=== PATIENT | male | born 1945 | race Caucasian/White ===

== ENCOUNTER → 2018-02-27 15:07 | Outpatient (CLI) | payer MEDICARE, SELFPAY | PROVIDERS: Family Provider Family Medicine; PCP Family Medicine; Referring Provider Nurse Practitioner Adult Health; Visit Provider Nurse Practitioner Adult Health | DX: N40.0 Benign prostatic hyperplasia without lower urinary tract symptoms (principal); Z12.5 Encounter for screening for malignant neoplasm of prostate | CPT/HCPCS: 36415; 84153; G0103 ==

== ENCOUNTER 2018-04-12 08:30 | Outpatient (RCR) | payer MEDICARE, BC, SELFPAY ==
--- NOTE | 2018-03-26 10:05 | HP.PTEVAL ---
Patient's Visit Information SERAFIN RODRIGUEZ is a 73 year old M referred to Physical Therapy by Thai Theodore with a diagnosis of Suspected Lateral Meniscal Tear. Date of Evaluation: 03/26/18 Physical Therapist: Do Augustin - Visit Plan Frequency: 2x /Week Duration: 3 Weeks Plan: Focus on LE and core s/s and US for modality of choice - Subjective Subjective: According to Dr. Theodore thinks he has a meniscal teat- Insidious onset- 6 weeks ago- more in the past couple of weeks. Plays golf regulaarly and that was becoming uncomfortable and was gone for 11 days and tried to walk/play golf and then he called and made a apt. Had an injection in the knee but no images. Injection was wed but has not helped. Worst: 03/07 Agg: after walking and playing golf. Eases: elevating, laying it to the side, ice and aleve. Pain is mostly at night- hard to get comfortable-has been going back and forth between the bed and chair. Pain is located in the left knee on the outside and radiate down the castaneda and into the inside. Warmth to the touch- Describes the pain as dull and achy. has had some jabbinging on the medial side. No N/T. Has had mild buckling feelings but has not buckled. No falls. Very active- works with [employer] 2x a week with [employer]- does core and weight training. TM for 30 minutes, free weights and machine weight. Golf- rides in the cart but does walk some. PMHx: A-fib, chipped bone on the left- boot a couple of years ago. Meds: fleconide, metoprolol, asprin, fonasteride - Objective Posture:[facility] Gait: slightly antalgic- decreased stance on the left LE with decreased toe off. HR/TR: able without UE A but reports discomfort. SLS: 10 sec with increased muscle activation and poor balance. Stairs: asc/desc 8 recip with no HR- push off is decreased on asc left- desc is uncontrolled and reports discomfort. Palpation: tender along lateral joint line and down the fibula. ROM: 0-110 degrees with pain at end range flexion. Strength: Ankle: 5/5, Knee: 4/5 with pain, Hip: 4-/5 throughout Core: fair. McMurrays: postive - Goals Goal 1:: Patient will be I with HEP and progression Goal Time Frame: 4-6 Weeks Goal 2:: Patient will demo 5/5 strength in LE Goal Time Frame: 4-6 Weeks Goal 3:: Patient will report 0/10 pain Goal Time Frame: 4-6 Weeks Goal 4:: Patient will asc/desc 8 stairs recip with no HR and good mechanics Goal Time Frame: 4-6 Weeks - Rehabilitation Potential Physical Therapy Diagnosis: Patient presents with hypomobility- he has decreased ROM, strength and muscular endurance leading to abnormal gait and increased pain with ADL's. Rehabilitation Potential: Fair - Anticipated Interventions Patient/Client Instruction: Educate patient on: Benefits of Fitness Program Therapeutic Exercise to Include: Strength training, Endurance training, Balance training, Agility training, Body mechanics, Postural training, Flexibilty training, Gait and locomotor training, Passive ROM, Active ROM, Dynamic Lumbar Stabilization For the Purpose of:: To improve muscle performance and motor function TENS: Yes Cryotherapy (ice pack, ice massage): Yes Thermo therapy (hot pack): Yes Ultrasound (thermal/non thermal): Yes For the Purpose of:: To decrease pain Thank you for the opportunity to evaluate your patient. For Medicare and Medicare HMO plans, please review the plan of care and approve it. It will need to be FAXED BACK to us at [phone] for Medicare purposes. Please let me know if there are questions or concerns regarding this plan of care. Physician Signature: Date:
--- NOTE | 2018-04-12 08:52 | HP.PTDCSUM ---
HP - PT D/C Summary It has been my pleasure to treat SERAFIN RODRIGUEZ under orders from Thai Theodore, for the diagnosis of Suspected Lateral Meniscal Tear for a total of 6 visit(s). Discharge Date: Please see the following information for a summary of their discharge status. - Subjective Subjective: Patient reports that his knee is pain free- maybe a week ago was the last time he had pain. The knee feels a little bit of weakness not as strong- no going to buckle- has not had any of those episodes. Moved a little faster up 26 stairs with no pain. Sleep: not disturbed. - Overall Improvement % Improvement: 90 - Objective Objective/Function: Posture: good throughout. Gait: no deviation noted. Stairs: asc/desc 8 recip with no HR- good technique. SLS: 30 sec without LOB. HR/TR: WNL no LOB. ROm: 0-125 degrees. Palpation: not tender. Strength: core: fair plus, LE:5/5 throughout - Goals Goal 1:: Patient will be I with HEP and progression Goal Progress: Goal Met Goal 2:: Patient will demo 5/5 strength in LE Goal Progress: Goal Met Goal 3:: Patient will report 0/10 pain Goal Progress: Goal Met Goal 4:: Patient will asc/desc 8 stairs recip with no HR and good mechanics Goal Progress: Goal Met - Plan Plan: Discharge to I HEP- see log - D/C Information If there are questions or concerns regarding this patient's physical therapy, please feel free to call me at [phone]. Thank you for the referral of this patient. Sincerely, Do Augustin
== END 2018-04-12 09:04 | disposition home or self-care (01) ==
LOC: PT 08:30
PROVIDERS: Family Provider Family Medicine; PCP Family Medicine; Referring Provider Family Medicine; Visit Provider Family Medicine
DX: M25.569 Pain in unspecified knee (principal)
CPT/HCPCS: 97110; 97161; 97164

== ENCOUNTER → 2018-05-04 08:00 | Outpatient (CLI) | payer MEDICARE, BC, SELFPAY ==
[2018-05-03 14:08] VITALS: BMI 27.4
[2018-05-04 09:37] LABS: AST(SGOT) 26 U/L (15-37); Alanine Aminotransfer ALT/SGPT 29 U/L (16-61); Albumin, Serum 3.6 g/dL (3.2-5.0); Alkaline Phosphatase 66 U/L (45-117); Bilirubin, Direct 0.11 mg/dL (0.00-0.30); Cholesterol 171 mg/dL (200); Globulin 3.7 g/dL (2.2-4.2); High Density Lipoprotein 69 mg/dL; Protein, Total 7.3 g/dL (6.4-8.2); Triglycerides 114 mg/dL; Very Low Density Lipoprotein 23 mg/dL (5-40)
== END ==
PROVIDERS: Family Provider Family Medicine; PCP Family Medicine; Referring Provider Internal Medicine Cardiovascular Disease; Visit Provider Internal Medicine Cardiovascular Disease
DX: E78.5 Hyperlipidemia, unspecified (principal); I48.0 Paroxysmal atrial fibrillation
CPT/HCPCS: 36415; 80061; 80076

== ENCOUNTER → 2018-05-14 06:27 | Outpatient (CLI) | payer MEDICARE, BC, SELFPAY ==
[2018-05-03 14:08] VITALS: BMI 27.4
--- NOTE | 2018-05-14 12:31 | STRESSREP ---
Stress Test Report Exercise myocardial perfusion stress test. 73-year-old man with a history of paroxysmal atrial fibrillation on flecainide. Medications: Simvastatin, aspirin, flecainide, metoprolol. Stress protocol. Resting EKG demonstrates sinus bradycardia with a rate of 47 bpm. Resting blood pressure 130/88 mmHg. The patient exercised according to regular Trevor protocol for total duration of 9 minutes and 46 seconds. The maximum heart rate attained was 129 bpm which was 87% of maximum predicted heart rate the maximum workload was 11.3 metabolic equivalents. Patient maintained sinus rhythm throughout the recording. At rest there were nonspecific ST-T wave changes noted. At peak exercise upsloping ST changes were noted with normally the criteria for ischemia. No clinical angina was noted the test was terminated due to leg fatigue and shortness of breath. Resting blood pressure is 130/88 with a peak blood pressure 174/60 mmHg. Myocardial perfusion protocol. 11.6 mCi of technetium 99m sestamibi was injected at rest. The patient exercised according to regular Trevor protocol for 9 minutes and 46 seconds. At peak exercise 34.1 mCi of technetium 99m sestamibi was injected stress images were obtained stress and rest images were reconstructed and compared in the short axis vertical long and horizontal long axis. Gated images were also obtained Perfusion SPECT analysis: Review of the stress images demonstrate normal uptake of tracer noted in all areas of the myocardium. The resting images similarly demonstrate normal uptake of tracer noted in all areas of the myocardium. No areas of reversibility are noted suggest ischemia no previous infarct is noted. Gated SPECT analysis: The gated ejection fraction is noted to be 66%. Conclusion: Normal exercise myocardial perfusion stress test at a high workload. Good functional capacity. No angina noted. No arrhythmia noted.
--- OUTSIDE RECORDS SUMMARY | 2018-08-15 16:25 | XMS RPT_ITS ---
:1945 Author Organization OHIP Care Team Providers Name Role Phone Cash Nathan Attending Unavailable Venita, [place] Referring Unavailable Thai Theodore Primary Care Unavailable Venita, [place] Attending Unavailable Venita, [place] Referring Unavailable Venita, [place] Attending Unavailable Ian Theodoreer Referring Unavailable Thai Theodore Primary Care Unavailable Venita, [place] Attending Unavailable Ian Theodoreer Referring Unavailable Thai Theodore Attending Unavailable Thai Theodore Referring Unavailable Thai Theodore Primary Care Unavailable Heide Norman Attending Unavailable Heide Norman Referring Unavailable [facility] Un[facility] Referring Unavailable [facility] [place] Primary Care Unavailable Venita, Cash Attending Unavailable Venita, Cash Referring Unavailable [facility] Unavailable PROBLEMS PROBLEMS DATE TYPE CONDITION / CODE ATTENDING STATUS SOURCE Unknown M25.562 - Pain in left Arben, Active [facility] 8 knee / M25.562(ICD-10) [facility] Repository Unknown I48.0 - Paroxysmal atrial Venita, [place] Active [place] 9 fibrillation / Community I48.0(ICD-10) Hospital Repository Unknown E78.5 - Hyperlipidemia, Venita, Cash Active [facility] 9 unspecified / Community E78.5(ICD-10) Hospital Repository Unknown M25.569 - Pain in Arben, Active [place] 8 unspecified knee / [facility] M25.569(ICD-10) Hospital Repository Unknown E78.00 - Pure Venita, Cash Active [place] 7 hypercholesterolemia, Community unspecified / Hospital E78.00(ICD-10) Repository Unknown E78.0 - Pure Venita, Cash Active [facility] 7 hypercholesterolemia / Community E78.0(ICD-10) Hospital Repository PROCEDURES PROCEDURES No Procedure Records FoundRESULTS RESULTS KNEE 4 OR MORE Observed: 05/28/2018 Status: F Source: [facility] 10:47 AM REPOSITORY [facility] Imaging Services [address] [place] [id number] Knee 4 or More Views MR#: [id number] Acct: [id number] Name: SERAFIN RODRIGUEZ Rep #: [id number] : 1945 M 73 From: Arya Luna MD PCP: Thai Theodore MD Status: REG CLI Study: Knee 4 or More Views Date of Exam: 05/28/18 Exam# [id number] Ordering Dr: Otis Theodore MD STUDY: X-RAY - LEFT KNEE REASON FOR EXAM: Male, 73 years old. Left knee pain several weeks status post stress test. TECHNIQUE: 4 view(s) of the knee. COMPARISON: None. FINDINGS: No effusion. Periarticular soft tissues unremarkable. Minimal degenerative features of the knee, great minimal osteophytic spurring at the margins of the medial or lateral compartments, mild of the patellofemoral compartment. Osteopenia. RAD/Knee 4 or More Views IMPRESSION: Minimal DJD. No effusion. No evidence of acute injury. Electronically Signed: Arya Luna MD at 15:11 EST Tel , Service support , CC: Thai Theodore MD Bar Staff: Signed STRESS REPORT Observed: 05/14/2018 Status: F Source: [facility] 12:34 PM REPOSITORY [facility] Cardiovascular Services [address] [place] [address] MR#: [id number] Acct: [id number] Name: SERAFIN RODRIGUEZ Rep #: [id number] : 1945 73 From: Cash Nathan MD Primary Care: Thai Theodore MD Status: REG CLI Ordering Dr: Sex: M C Stress Test Report Exercise myocardial perfusion stress test. 73-year-old man with a history of paroxysmal atrial fibrillation on flecainide. Medications: Simvastatin, aspirin, flecainide, metoprolol. Stress protocol. Resting EKG demonstrates sinus bradycardia with a rate of 47 bpm. Resting blood pressure 130/88 mmHg. The patient exercised according to regular Trevor protocol for total duration of 9 minutes and 46 seconds. The maximum heart rate attained was 129 bpm which was 87% of maximum predicted heart rate the maximum workload was 11.3 metabolic equivalents. Patient maintained sinus rhythm throughout the recording. At rest there were nonspecific ST-T wave changes noted. At peak exercise upsloping ST changes were noted with normally the criteria for ischemia. No clinical angina was noted the test was terminated due to leg fatigue and shortness of breath. Resting blood pressure is 130/88 with a peak blood pressure 174/60 mmHg. Myocardial perfusion protocol. 11.6 mCi of technetium 99m sestamibi was injected at rest. The patient exercised according to regular Trevor protocol for 9 minutes and 46 seconds. At peak exercise 34.1 mCi of technetium 99m sestamibi was injected stress images were obtained stress and rest images were reconstructed and compared in the short axis vertical long and horizontal long axis. Gated images were also obtained Perfusion SPECT analysis: Review of the stress images demonstrate normal uptake of tracer noted in all areas of the myocardium. The resting images similarly demonstrate normal uptake of tracer noted in all areas of the myocardium. No areas of reversibility are noted suggest ischemia no previous infarct is noted. Gated SPECT analysis: The gated ejection fraction is noted to be 66%. Conclusion: Normal exercise myocardial perfusion stress test at a high workload. Good functional capacity. No angina noted. No arrhythmia noted. 05/14/18 1234 <Electronically signed by Cash Nathan MD> Date Cash Nathan MD CC: Thai Theodore MD; Cash Nathan MD Date Dictated: 05/14/18 1231 Date Transcribed: 05/14/18 1231 Bar Staff: CO Signed LIVER PROFILE Collected: 05/04/2018 Status: F Source: [facility] 8:01 AM REPOSITORY TYPE CODE TESTS RESULT OUT OF RANGE REFERENCE UNITS LAB L501.1500 6.4-8.2 g/dL Normal T PROT 7.3 LAB L501.1800 3.2-5.0 g/dL Normal ALB 3.6 LAB L501.1950 2.2-4.2 g/dL Normal GLOB 3.7 LAB L501.4100 15-37 U/L Normal AST 26 LAB L501.4305 45-117 U/L Normal ALK P 66 LAB L501.4405 16-61 U/L Normal ALT 29 LAB L501.4600 0.20-1.00 mg/dL Normal T BILI 0.60 LAB L501.4700 0.00-0.30 mg/dL Normal D BILI 0.11 Performed By: #### L500.3400, L500.4100 #### [facility] [address] [place], [address] LIPID PROFILE Collected: 05/04/2018 Status: F Source: [facility] 8:01 AM REPOSITORY TYPE CODE TESTS RESULT OUT OF RANGE REFERENCE UNITS LAB L501.4900 200 mg/dL Normal CHOL 171 Result Comment: <200 mg/dL Desirable 200-240 mg/dL Borderline >240 mg/dL High Risk LAB L501.5000 mg/dL Normal TRIG 114 Result Comment: The drugs N-Acetylcysteine and Metamizole may falsely depress this assay. Serum Triglycerides Reference Interval Normal <150 mg/dL Borderline high 150 - 199 mg/dL High 200 - 499 mg/dL Very High > or = 500 mg/dL LAB L501.6400 mg/dL Normal HDL 69 Result Comment: The drugs N-Acetylcysteine and Metamizole may falsely depress this assay. Reference Range HDL <40 mg/dL Low HDL Cholesterol HDL >or= 60 mg/dL High HDL Cholesterol LAB L501.6500 0-130 mg/dL Normal LDL 79 LAB L501.6600 5-40 mg/dL Normal VLDL 23 Performed By: #### L500.3400, L500.4100 #### [facility] [address] [place], [address] CARDIOLOGY VISIT Observed: 05/03/2018 Status: F Source: [facility] REPORT 2:38 PM REPOSITORY [facility] [address] [place] [address] OFFICE VISIT Date of Service: 05/03/18 MR#: [id number] Acct: [id number] Name: SERAFIN RODRIGUEZ Rep #: [id number] : 1945 Provider: Cash Nathan MD Age/Sex: 73/M Location: [facility] [place] Status: Signed [facility] Chief Complaint: Follow up visit Details: SERAFIN RODRIGUEZ is a 73 M who presents to the office today for a follow-up cardiovascular visit. He is a gentleman with a history of paroxysmal atrial fibrillation mild hyperlipidemia who returns for follow-up visit he has been doing quite well since his last visit denies any chest pain or shortness breath paroxysmal nocturnal dyspnea or pedal edema he has not had any neck, jaw discomfort suggest angina no palpitations. He remains on his current dose of Toprol and flecainide which is tolerating quite well. His physical exam today demonstrates clear lung cage regular rate and rhythm and no pedal edema. His electric cardiogram today demonstrates sinus rhythm with a rate of 48 bpm and no acute changes. Intake Vital Signs05/03/18 Height 5 ft 11 in 05/03/18 Weight: 197 lb 05/03/18 Body Mass Index (BMI) 27.4 05/03/18 Blood Pressure 118/64 05/03/18 Blood Pressure Location Lt brachial Intake Visit Reasons: 1 Y FU (we r/s from -) Bonbon Cream Warmer Required: No Accompanied by: NONE Is patient in pain?: No Allergies No Known Allergies Allergy (Verified 05/03/18 14:09) Medications Aspirin E.C. [Ecotrin] 81 mg PO DAILY@0800 12/03/14 [History Confirmed 05/23/17] Flecainide [Tambocor] 100 mg PO BID 12/03/14 [History Confirmed 05/23/17] finasteride 5 mg tablet 5 mg PO QDAY 05/23/17 [History Confirmed 05/23/17] simvastatin 10 mg tablet 10 mg PO QHS #90 tab 06/13/17 [Rx] metoprolol succinate ER 25 mg tablet,extended release 24 hr 12.5 mg PO DAILY #45 tab 04/26/18 [Rx] diazepam 2 mg tablet 2 mg PO DAILY tab 05/03/18 [History Confirmed 05/03/18] [facility] Medical History Atrial arrhythmia (Chronic) Ventricular ectopy (Chronic) Paroxysmal atrial fibrillation (Chronic) HLD (hyperlipidemia) (Chronic) Paroxysmal atrial tachycardia (Chronic) Vertigo (Resolved 03/2013) Surgical History History of left heart catheterization (LHC) (Chronic 06/15/11) Family History Father CAD (coronary artery disease) Myocardial infarction, Onset Age: 62 Brother AIDS Social History Smoking Status: Never smoker alcohol intake: current alcohol intake frequency: a few times a week Alcohol type: beer, hard liquor substance use type: does not use caffeine: No what type of physical activity do you participate in: weight training, walking frequency: 3-4 times per week duration: 45-60 minutes/day seatbelt use: always do you feel safe at home: Yes ROS Const Const: Negative for fatigue, weakness, night sweats, excessive sweating, frequent falls, headache(s) or daytime sleepiness Eyes Eyes: Negative for loss of peripheral vision, transient loss of vision, blind spots, double vision or blurry vision ENT ENT: Negative for headache(s), dizziness, balance problems, Nosebleed/epistaxis, tongue swelling or lip swelling Cardio Chest Pain: No Palpitations: No Edema: None Muscle aches with walking: None Resp Respiratory: Negative for SOB at rest, SOB orthopnea\SOB lying down, Cough, paroxysmal nocturnal dyspnea or SOB with activity GI GI: Negative nausea, vomiting, heartburn, black,tarry stools or bright, red blood in stools : Negative for hematuria Musc Musc: Negative for balance problems, muscle aches/ myalgia, muscle weakness or joint pain Skin Skin: Negative non-healing lesions, unusual bruising or rash Neuro Neuro: Negative for weakness, frequent falls, headache(s), double vision, dizziness, lightheadedness, orthostatic symptoms, blurry vision or lack of coordination Esteban Hematologic/Lymphatic: Negative for easy bruising or easy bleeding Endo Endo: Negative for fatigue, excessive sweating, cold intolerance, heat intolerance, increased thirst/drinking or hair loss Psych Psych: Negative for anxiety or depression Allergy Allergy/Immunology: Negative for throat swelling, Negative for tongue swelling, Negative for hives, Negative for rash, Negative for lip swelling Cardiology Exam Const Appearance: cooperative, healthy appearing, well developed, well groomed and no acute distress Nutritional Appearance: well nourished and average body habitus Orientation: alert, awake and oriented x3 Head Head: normal to inspection, normocephalic and atraumatic Ears: hearing grossly normal bilaterally and external ears normal Nose: external nose normal, nasal mucous membranes and turbinates normal, nares normal, septum normal, no nasal discharge Face and Sinus: face symmetric Mouth: oral mucosae normal, tongue normal, oropharynx normal and moist mucous membranes Teeth and gingiva: dentition normal Throat: posterior oropharynx normal, tonsils normal and uvula midline Eyes General: appearance normal, both eyes and all related structures Eyelids: eyelids normal Conjunctivae: conjunctivae normal Pupils: PERRL, normal by confrontation and accommodation normal EOM: EOM intact bilaterally Neck Neck: normal visual inspection, trachea midline and no JVD JVD: +5 Carotids: normal carotid upstroke and bounding pulses Chest Chest inspection: normal inspection of the chest, symmetric chest movement and normal respiratory effort Auscultation: Bilateral: Clear to Auscultation Cardio Palpation: normal PMI Rate: regular rate Rhythm: regular rhythm Heart sounds: S1 normal, S2 normal and normal, physiologic split S2; negative rub, gallop or murmur GI GI: normal to inspection, soft, no hepatosplenomegaly and bowel sounds present Neuro General: alert, awake, oriented x3, no focal sensory deficit, gait normal and moves all extremities Skin Skin: no rashes or lesions noted Extremities Pulses: Normal: Right Femoral Pulse, Left Femoral Pulse, Right Dorsalis Pedis Pulse, Left Dorsalis Pedis Pulse, Right Posterior Tibial Pulse, Left Posterior Tibial Pulse, Right Radial Pulse, Left Radial Pulse Lower Extremity Edema: None: Bilateral Musculoskel Musculoskeletal: No joint tenderness Psych Psychological: normal affect Assessment AND Plan 1. Paroxysmal atrial fibrillation I48.0 Plan He does have a history of paroxysmal atrial fibrillation. He is maintaining sinus rhythm quite well and his electrocardiogram reflects the above. My recommendation would be for him to continue the same medications without as making any changes. At this visit I would recommend that we obtain a routine exercise stress test due to his being on flecainide. 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) Coding Level of Care Code Off vis,est,level 3 Diagnoses Paroxysmal atrial fibrillation I48.0 Coding Level of Care Code Off vis,est,level 3 Diagnoses Paroxysmal atrial fibrillation I48.0 05/03/18 1438 <Electronically signed by Cash Nathan MD> Date Cash Nathan MD Cosigner Signature: Date (if applicable) CC: Thai Theodore MD 12 LEAD EKG PERFORMED Observed: 05/03/2018 Status: F Source: [facility] [place] 2:10 PM REPOSITORY [facility] [address] [place] [address] 12 Lead EKG performed by [facility] 05/03/18 1409 MR#: [id number] Acct: [id number] Name: SERAFIN RODRIGUEZ Rep #: [id number] : 1945 73 From: Cash Nathan MD Attending Dr: Cash Nathan MD Status: DEP AMB Ordering Dr: Cash Nathan MD Date: 05/03/18 Location: [facility] [place] Sex: M C Admitted: [facility]/12 Lead EKG performed by [facility] ECG Report Interpretation Marked sinus Bradycardia BORDERLINE RHYTHMElectronically signed on 06/19/2018 at 16:30 by Cash Nathan [employer] Version [id number] 06/19/18 1640 Date Cash Nathan MD CC: Thai Theodore MD Date Dictated: 05/03/181408 Date Transcribed: 05/03/181408 Bar Staff: CO Signed PT D/C SUMMARY (1) Observed: 04/12/2018 Status: F Source: [place] 8:54 AM REPOSITORY [facility] [place] [id number] [place] [address] Fax REHABILITATION SERVICES DISCHARGE SUMMARY MR#: [id number] Acct: [id number] Name: SERAFIN RODRIGUEZ Rep #: [id number] : 1945 73 From: Do Augustin DPT Referring Dr.: Thai Theodore MD Status: REG RCR Insurance: MEDICARE PART A B SELF PAY INSURANCE HP - PT D/C Summary It has been my pleasure to treat SERAFIN RODRIGUEZ under orders from Thai Theodore, for the diagnosis of Suspected Lateral Meniscal Tear for a total of 6 visit(s). Discharge Date: Please see the following information for a summary of their discharge status. - Subjective Subjective: Patient reports that his knee is pain free- maybe a week ago was the last time he had pain. The knee feels a little bit of weakness not as strong- no going to buckle- has not had any of those episodes. Moved a little faster up 26 stairs with no pain. Sleep: not disturbed. - Overall Improvement % Improvement: 90 - Objective Objective/Function: Posture: good throughout. Gait: no deviation noted. Stairs: asc/desc 8 recip with no HR- good technique. SLS: 30 sec without LOB. HR/TR: WNL no LOB. ROm: 0-125 degrees. Palpation: not tender. Strength: core: fair plus, LE:5/5 throughout - Goals Goal 1:: Patient will be I with HEP and progression Goal Progress: Goal Met Goal 2:: Patient will demo 5/5 strength in LE Goal Progress: Goal Met Goal 3:: Patient will report 0/10 pain Goal Progress: Goal Met Goal 4:: Patient will asc/desc 8 stairs recip with no HR and good mechanics Goal Progress: Goal Met - Plan Plan: Discharge to I HEP- see log - D/C Information If there are questions or concerns regarding this patient's physical therapy, please feel free to call me at [phone]. Thank you for the referral of this patient. Sincerely, Do Augustin <Electronically signed by Do Augustin DPT> 04/12/18 0854 CC: Thai Theodore MD ELR Signed INITAL EVALUATION (1) Observed: 03/26/2018 Status: F Source: [facility] - [facility] 10:05 AM REPOSITORY [facility] [address] [place] [address]. [address] [place] [address] Fax REHABILITATION SERVICES INITIAL EVALUATION MR#: [id number] Acct: [id number] Name: SERAFIN RODRIGUEZ Rep #: [id number] : 1945 73 From: Do Augustin DPT Referring Dr.: Thai Theodore MD Status: REG RCR Insurance: MEDICARE PART A B SELF PAY INSURANCE Patient's Visit Information SERAFIN RODRIGUEZ is a 73 year old M referred to Physical Therapy by Thai Theodore with a diagnosis of Suspected Lateral Meniscal Tear. Date of Evaluation: 03/26/18 Physical Therapist: Do Augustin - Visit Plan Frequency: 2x /Week Duration: 3 Weeks Plan: Focus on LE and core s/s and US for modality of choice - Subjective Subjective: According to Dr. Theodore thinks he has a meniscal teat- Insidious onset- 6 weeks ago- more in the past couple of weeks. Plays golf regulaarly and that was becoming uncomfortable and was gone for 11 days and tried to walk/play golf and then he called and made a apt. Had an injection in the knee but no images. Injection was wed but has not helped. Worst: 03/07 Agg: after walking and playing golf. Eases: elevating, laying it to the side, ice and aleve. Pain is mostly at night- hard to get comfortable- has been going back and forth between the bed and chair. Pain is located in the left knee on the outside and radiate down the castaneda and into the inside. Warmth to the touch- Describes the pain as dull and achy. has had some jabbinging on the medial side. No N/T. Has had mild buckling feelings but has not buckled. No falls. Very active- works with [employer] 2x a week with [employer]- does core and weight training. TM for 30 minutes, free weights and machine weight. Golf- rides in the cart but does walk some. PMHx: A-fib, chipped bone on the left- boot a couple of years ago. Meds: fleconide, metoprolol, asprin, fonasteride - Objective Posture:good throughout treatemtns ession. Gait: slightly antalgic- decreased stance on the left LE with decreased toe off. HR/TR: able without UE A but reports discomfort. SLS: 10 sec with increased muscle activation and poor balance. Stairs: asc/desc 8 recip with no HR- push off is decreased on asc left- desc is uncontrolled and reports discomfort. Palpation: tender along lateral joint line and down the fibula. ROM: 0-110 degrees with pain at end range flexion. Strength: Ankle: 5/5, Knee: 4/5 with pain, Hip: 4-/5 throughout Core: fair. McMurrays: postive - Goals Goal 1:: Patient will be I with HEP and progression Goal Time Frame: 4-6 Weeks Goal 2:: Patient will demo 5/5 strength in LE Goal Time Frame: 4-6 Weeks Goal 3:: Patient will report 0/10 pain Goal Time Frame: 4-6 Weeks Goal 4:: Patient will asc/desc 8 stairs recip with no HR and good mechanics Goal Time Frame: 4-6 Weeks - Rehabilitation Potential Physical Therapy Diagnosis: Patient presents with hypomobility- he has decreased ROM, strength and muscular endurance leading to abnormal gait and increased pain with ADL's. Rehabilitation Potential: Fair - Anticipated Interventions Patient/Client Instruction: Educate patient on: Benefits of Fitness Program Therapeutic Exercise to Include: Strength training, Endurance training, Balance training, Agility training, Body mechanics, Postural training, Flexibilty training, Gait and locomotor training, Passive ROM, Active ROM, Dynamic Lumbar Stabilization For the Purpose of:: To improve muscle performance and motor function TENS: Yes Cryotherapy (ice pack, ice massage): Yes Thermo therapy (hot pack): Yes Ultrasound (thermal/non thermal): Yes For the Purpose of:: To decrease pain Thank you for the opportunity to evaluate your patient. For Medicare and Medicare HMO plans, please review the plan of care and approve it. It will need to be FAXED BACK to us at [phone] for Medicare purposes. Please let me know if there are questions or concerns regarding this plan of care. Physician Signature: Date: <Electronically signed by Do Augustin DPT> 03/26/18 1005 CC: Thai Theodore MD ELR Signed For Medicare only, by signing this I certify the plan of care. Physicians Signature Date PSA,TOTAL - ANNUAL Collected: 02/27/2018 Status: F Source: [facility] SCREEN 3:18 PM REPOSITORY TYPE CODE TESTS RESULT OUT OF RANGE REFERENCE UNITS LAB L501.9910 0.00-4.00 ng/mL Normal PSA,TOT 0.10 SCREEN Result Comment: This test was performed using the TPSA assay method for the [employer] chemistry system. Values obtained with different assay methods cannot be used interchangably. When changing PSA assays in the course of monitoring a patient, additional sequential testing should be carried out to confirm baseline values. Performed By: #### L501.9910 #### [facility] [address] [place], [address] CARDIOLOGY VISIT Observed: 06/21/2017 Status: F Source: [facility] REPORT 12:15 PM REPOSITORY [facility] [address] [place] [address] OFFICE VISIT Date of Service: 05/25/17 MR#: [id number] Acct: [id number] Name: SERAFIN RODRIGUEZ Rep #: [id number] : 1945 Provider: Cash Nathan MD Age/Sex: 72/M Location: [facility] [place] Status: Signed HPI 6 M FU: Chief Complaint: Follow-up visit. Details: SERAFIN RODRIGUEZ, is a 72 M who presents to the office today for a follow-up cardiovascular visit. He is a gentleman with a history of paroxysmal atrial fibrillation mild hyperlipidemia who returns for follow-up visit he has been doing quite well since his last visit denies any chest pain or shortness breath paroxysmal nocturnal dyspnea or pedal edema he has not had any neck, jaw discomfort suggest angina no palpitations. He remains on his current dose of Toprol and flecainide which is tolerating quite well. His physical exam today demonstrates clear lung cage regular rate and rhythm and no pedal edema. Intake Vital Signs05/25/17 Height 5 ft 11 in 05/25/17 Weight: 198 lb 05/25/17 Body Mass Index (BMI) 27.6 05/25/17 Blood Pressure 120/68 05/25/17 Blood Pressure Location Lt brachial Intake Visit Reasons: 6 M Bonbon Cream Warmer Required: No Accompanied by: None Is patient in pain?: No Allergies No Known Allergies Allergy (Verified 05/23/17 08:37) Medications Aspirin E.C. [Ecotrin] 81 mg PO DAILY@0800 12/03/14 [History Confirmed 05/23/17] Flecainide [Tambocor] 100 mg PO BID 12/03/14 [History Confirmed 05/23/17] Metoprolol(XL)Succ [Toprol Xl (Beta Blake)] 12.5 mg PO DAILY 12/03/14 [History Confirmed 05/23/17] Simvastatin [Zocor] 10 mg PO QHS 12/03/14 [History Confirmed 05/23/17] finasteride 5 mg tablet 5 mg PO QDAY 05/23/17 [History Confirmed 05/23/17] Ejection fraction %: 65 to 70 PFSH Medical History Atrial arrhythmia (Chronic) Ventricular ectopy (Chronic) Paroxysmal atrial fibrillation (Chronic) HLD (hyperlipidemia) (Chronic) Paroxysmal atrial tachycardia (Chronic) Vertigo (Resolved 03/2013) Surgical History History of left heart catheterization (LHC) (Chronic 06/15/11) Family History Father CAD (coronary artery disease) Myocardial infarction, Onset Age: 62 Brother AIDS Social History Smoking Status: Never smoker alcohol intake: current alcohol intake frequency: a few times a week Alcohol type: beer, hard liquor substance use type: does not use caffeine: No what type of physical activity do you participate in: weight training, walking frequency: 3-4 times per week duration: 45-60 minutes/day seatbelt use: always do you feel safe at home: Yes ROS Const Const: Negative for body ache, fever(s), chills, night sweats, daytime sleepiness, difficulty sleeping, weight gain, weight loss, increased appetite, poor appetite, anorexia, other, frequent falls, headache(s), weakness, fatigue or excessive sweating Eyes Eyes: Negative for blind spots, loss of peripheral vision, transient loss of vision, change in vision, floaters, tunnel vision, other, blurry vision or double vision ENT ENT: Negative for hearing loss, Negative for tinnitus, Negative for Nosebleed/epistaxis, Negative for post nasal drip, Negative for bleeding gums, Negative for hoarseness, Negative for neck pain, Negative for dry mouth, Negative for other, Negative for balance problems, Negative for dizziness, Negative for headache(s), Negative for tongue swelling, Negative for lip swelling Cardio Chest Pain: No Palpitations: Positive for No Edema: None Muscle aches with walking: None Resp Respiratory: Negative for SOB with activity, SOB at rest, SOB orthopnea\SOB lying down, Coughing up blood/hemoptysis, chest congestion, pain on inspiration, snoring, stridor, wheezing, crackles, paroxysmal nocturnal dyspnea or other GI GI: Negative nausea, vomiting, heartburn, constipation, belching, bloating, cramping, vomiting blood/hematemesis, bright, red blood in stools, black,tarry stools, loose stools, Difficulty Swallowing or other : Negative for hematuria, frequent nighttime urination/ nocturia, erectile dysfunction or abnormal vaginal bleeding Musc Musc: Negative for muscle aches/ myalgia, muscle weakness, joint pain or balance problems Skin Skin: Negative redness, non-healing lesions, unusual bruising, skin ulcer, wounds, jaundice, other or rash Neuro Neuro: Negative for dizziness, Negative for lightheadedness, Negative for near syncope, Negative for syncope, Negative for orthostatic symptoms, Negative for frequent falls, Negative for headache(s), Negative for weakness, Negative for confusion, Negative for memory loss, Negative for restless legs, Negative for blurry vision, Negative for double vision, Negative for vertigo, Negative for seizures, Negative for lack of coordination, Negative for other Esteban Hematologic/Lymphatic: Negative for easy bleeding, easy bruising, enlarged lymph nodes or other Endo Endo: Negative for fatigue, cold intolerance, heat intolerance, excessive sweating, flushing, increased thirst/drinking, increased hunger, hair loss, hair growth or other Psych Psych: Negative for anxiety, depression, thoughts of harming anyone, thoughts of harming yourself, visual hallucinations, panic attacks or audible hallucinations Allergy Allergy/Immunology: Negative for throat swelling, Negative for tongue swelling, Negative for hives, Negative for rash, Negative for lip swelling Cardiology Exam Const Appearance: cooperative, healthy appearing, well developed, well groomed and no acute distress Nutritional Appearance: well nourished and average body habitus Orientation: alert, awake and oriented x3 Head Head: normal to inspection, normocephalic and atraumatic Ears: hearing grossly normal bilaterally and external ears normal Nose: external nose normal, nasal mucous membranes and turbinates normal, nares normal, septum normal, no nasal discharge Face and Sinus: face symmetric Mouth: oral mucosae normal, tongue normal, oropharynx normal and moist mucous membranes Teeth and gingiva: dentition normal Throat: posterior oropharynx normal, tonsils normal and uvula midline Eyes General: appearance normal, both eyes and all related structures Eyelids: eyelids normal Conjunctivae: conjunctivae normal Pupils: PERRL, normal by confrontation and accommodation normal EOM: EOM intact bilaterally Neck Neck: normal visual inspection, trachea midline and no JVD JVD: +5 Carotids: normal carotid upstroke and bounding pulses Chest Chest inspection: normal inspection of the chest, symmetric chest movement and normal respiratory effort Auscultation: Bilateral: Clear to Auscultation Cardio Palpation: normal PMI Rate: regular rate Rhythm: regular rhythm Heart sounds: S1 normal, S2 normal and normal, physiologic split S2; negative rub, gallop or murmur GI GI: normal to inspection, soft, no hepatosplenomegaly and bowel sounds present Neuro General: alert, awake, oriented x3, no focal sensory deficit, gait normal and moves all extremities Skin Skin: no rashes or lesions noted Extremities Pulses: Normal: Right Femoral Pulse, Left Femoral Pulse, Right Dorsalis Pedis Pulse, Left Dorsalis Pedis Pulse, Right Posterior Tibial Pulse, Left Posterior Tibial Pulse, Right Radial Pulse, Left Radial Pulse Lower Extremity Edema: None: Bilateral Musculoskel Musculoskeletal: No joint tenderness Psych Psychological: normal affect Assessment AND Plan 1. Paroxysmal atrial fibrillation I48.0 Plan He has not had any recurrence of the above. An electrocardiogram be performed today to ascertain adequate MT QRS and QT intervals. No be made to his current medications. Orders Orders: 2. Pure hypercholesterolemia E78.00; E78.00; E78.00; E78.0 Plan His lipid profile appears to be excellent on his current low intensity statin. His most recent lipid profile demonstrated total cholesterol 146, LDL of 56 and HDL 67 all of which are excellent. At this time I will not suggest any changes in at his next visit next year we probably should consider a stress test. Thank you for allowing me to participate in the care of your patient. 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 1221 <Electronically signed by Cash Nathan MD> Date Cash Donnelly Signature: Date (if applicable) CC: Thai Theodore MD ALLERGIES ALLERGIES DATE TYPE / CODE NAME / CODE REACTION SEVERITY SOURCE 05/03/2018 Drug No Known Unknown Mode [facility] Allergy/4160 Allergies/F00 [facility] [address]392(SNOMED [id number](RXNOR Repository CT) M) ENCOUNTERS ENCOUNTERS ADMIT/DISCHARGE ACCOUNT ADMITTING ENCOUNTER LOCATION SOURCE NUMBER CLASS 05/28/2018 [id number] Ambulatory [place] 3 [facility] ing:MTLAB Repository 05/14/2018 [id number] Ambulatory [place] 6 [facility] ing:[facility] Repository 05/14/2018 [id number] Ambulatory BMSBuilding:W Mode 8 [facility] Repository 05/04/2018 [id number] Ambulatory [place] Mode 5 [facility] ing:LAB Repository 05/03/2018/ [id number] Ambulatory BMSBuilding:B Mode 8 6 [facility] Repository 04/12/2018/ [id number] Ambulatory [place] 8 3 [facility] ing:PT Repository 02/27/2018 [id number] Ambulatory Mode [place] 0 [facility] ing:LAB Repository 05/25/2017/ [id number] Ambulatory BMSBuilding:B Mode 7 7 [facility] Repository PAYERS PAYERS ENCOUNTER GUARANTOR PAYER SUBSCRIBER SOURCE 05/28/2018 SERAFIN R Primary SERAFIN Mercado [id number] Insurance:MEDICARE [facility] [id number] Number: Repository [address]Kqi: 330 [id number] [phone] () Date:2018-05-28 05/28/2018 Secondary SERAFIN R Mode Insurance:ANTHEMPolic WEBSTERDOB: Community y Number: [id number] [id number] Repository Date:[id number] [address] [address]LV: 05/28/2018 Tertiary NOT GIVENUNK [place] Insurance:SELF PAY [facility] Number: Effective Repository Date:2018-05-28 05/14/2018 SERAFIN R Primary SERAFIN Mercado [id number] Insurance:MEDICARE WEBSTERDOB: [facility] PART A [facility] [id number] Number: Repository [address]Vse: 330 [id number] [phone] () Date:2018-05-03 05/14/2018 Secondary SERAFIN R [place] Insurance:ANTHEMPolic WEBSTERDOB: Community y Number: [id number] Hospital [id number] Repository Date:[id number] [address] [place] [address]CK: 05/14/2018 Tertiary NOT GIVENUNK [place] Insurance:SELF PAY [facility] Number: Effective Repository Date:2018-05-03 05/14/2018 SERAFIN R Primary SERAFIN R Mode [id number] Insurance:MEDICARE [facility]DOB[facility] [id number] Number: Repository [id number]: 330 [id number] [phone] (HP) Date:2018-05-03 05/14/2018 Secondary SERAFIN R [place] Insurance:ANTHEMPolic WEBSTERDOB: Community y Number: [id number] Hospital [id number] Repository Date:[id number], [place] [address]MB: 05/14/2018 Tertiary NOT GIVENUNK Mode Insurance:SELF PAY [facility] Number: Effective Repository Date:2018-05-14 05/04/2018 SERAFIN R Primary SERAFIN R Mode [id number] Insurance:MEDICARE WEBSTERDOB: Community WOODMERE PART A [facility] [id number] Number: Repository [id number]: [phone] [id number] [phone] () Date:2018-05-04 05/04/2018 Secondary SERAFIN R [place] Insurance:ANTHEMPolic WEBSTERDOB: Community y Number: [id number] Hospital [id number] Repository Date:1017-99-16[address]TJ[place]Q, [place] [address]BX: 05/04/2018 Tertiary NOT GIVENUNK Mode Insurance:SELF PAY [facility] Number: Effective Repository Date:2018-05-04 05/03/2018 SERAFIN R Primary SERAFIN R Mode [id number] Insurance:MEDICARE WEBSTERDOB: Community WOODMERE PART A [facility] [id number] [place] Number: Repository [address]Low: 330 [id number] [phone] () Date:2017-05-25 05/03/2018 Secondary SERAFIN R Mode Insurance:ANTHEMPolic WEBSTERDOB: Community y Number: [id number] Hospital [id number] Repository Date:[id number] [place] [address]BD: 05/03/2018 Tertiary NOT GIVENUNK [place] Insurance:SELF PAY [facility] Number: Effective Repository Date:2018-04-10 04/12/2018 SERAFIN R Primary SERAFIN R [place] [id number] Insurance:MEDICARE WEBSTERDOB: Community WOODMERE PART A [facility] [id number] Number: Repository [id number]: 330 [id number] [phone] (HP) Date:2010-01-27 04/12/2018 Secondary SERAFIN R Mode Insurance:ANTHEMPolic WEBSTERDOB: Community y Number: [id number] Hospital [id number] Repository Date:[id number] [facility] [id number] [place] [address]TF: 04/12/2018 Tertiary NOT GIVENUNK Mode Insurance:SELF PAY [facility] Number: Effective Repository Date:2018-03-21 02/27/2018 SERAFIN R Primary SERAFIN R Mode [id number] Insurance:MEDICARE WEBSTERDOB: Community WOODMERE PART A [facility] [id number] Number: Repository [id number]: 330 [id number] [phone] () Date:2018-02-27 02/27/2018 Secondary NOT GIVENUNK Mode Insurance:SELF PAY [facility] Number: Effective Repository Date:2018-02-27 05/25/2017 SERAFIN R Primary SERAFIN R Mode [id number] Insurance:MEDICARE WEBSTERDOB: Community WOODMERE PART A [facility] [id number] Number: Repository [id number]: 330 [id number] [phone] () Date:2017-04-29 05/25/2017 Secondary NOT GIVENUNK Mode Insurance:SELF PAY [facility] Number: Effective Repository Date:2017-04-29
== END ==
PROVIDERS: Family Provider Family Medicine; PCP Family Medicine; Referring Provider Internal Medicine Cardiovascular Disease; Visit Provider Internal Medicine Cardiovascular Disease
DX: I48.0 Paroxysmal atrial fibrillation (principal); I25.10 Atherosclerotic heart disease of native coronary artery without angina pectoris; R00.1 Bradycardia, unspecified; I49.3 Ventricular premature depolarization
CPT/HCPCS: 78452; 93017; A9500; A4216

== ENCOUNTER → 2018-05-28 10:44 | Outpatient (CLI) | payer MEDICARE, BC, SELFPAY ==
[2018-05-03 14:08] VITALS: BMI 27.4
--- NOTE | 2018-05-28 11:03 | RAD_ITS ---
STUDY: X-RAY - LEFT KNEE REASON FOR EXAM: Male, 73 years old. Left knee pain several weeks status post stress test. TECHNIQUE: 4 view(s) of the knee. COMPARISON: None. FINDINGS: No effusion. Periarticular soft tissues unremarkable. Minimal degenerative features of the knee, great minimal osteophytic spurring at the margins of the medial or lateral compartments, mild of the patellofemoral compartment. Osteopenia. RAD/Knee 4 or More Views IMPRESSION: Minimal DJD. No effusion. No evidence of acute injury. Electronically Signed: Arya Luna MD at 15:11 EST Tel , Service support ,
== END ==
PROVIDERS: Family Provider Family Medicine; PCP Family Medicine; Referring Provider Family Medicine; Visit Provider Family Medicine
DX: M25.562 Pain in left knee (principal)
CPT/HCPCS: 73564

== ENCOUNTER → 2018-08-07 06:23 | Outpatient (CLI) | payer MEDICARE, BC, SELFPAY ==
[2018-05-03 14:08] VITALS: BMI 27.4
--- NOTE | 2018-08-07 06:37 | MRI_ITS ---
STUDY: MRI LEFT KNEE REASON FOR EXAM: Medial knee pain for 3 months. TECHNIQUE: Standardized fat and water weighted pulse sequences were obtained in all 3 orthogonal planes. COMPARISON: Radiographs 05/28/2018. FINDINGS: There is minimal intrasubstance myxoid degeneration of the posterior horn of the medial meniscus without discrete meniscal tear. Normal hyaline cartilage of the medial femorotibial compartment. There is a subchondral stress fracture of the medial femoral condyle (T2 sagittal image 6) with associated bone edema. Normal medial collateral ligamentous complex (MCL). Normal distal semimembranosus, gracilis and semitendinosus tendons. Normal lateral meniscus. Normal hyaline cartilage of the lateral femorotibial compartment. There is a small subchondral stress fracture of the lateral femoral condyle (T2 coronal image 17; T2 sagittal image 21). Normal proximal tibiofibular articulation. Normal lateral collateral (fibular) ligament. Normal popliteus tendon. Normal biceps femoris tendon. Normal anterior cruciate ligament (ACL). Normal posterior cruciate ligament (PCL). Normal congruent patellofemoral articulation. Normal hyaline cartilage of the patellofemoral compartment. Normal medial and lateral patellar retinaculum. Normal visualized quadriceps tendon. There is patellar enthesopathy. Normal patellar tendon. Normal Hoffa's fat pad. There is a small joint effusion. There is a thin medial patellar plica. There is mild extravasated fluid from a small ruptured popliteal cyst (T2 sagittal images 6-8). There is mild edema in the anterior subcutis adipose space. The otherwise visualized osseous structures are unremarkable. MRI/Lower Ext Joint Only (Routine) IMPRESSION: Subchondral stress fracture of the medial femoral condyle. Small subchondral stress fracture of the lateral femoral condyle. Small joint effusion. Mild extravasated fluid from a small ruptured popliteal cyst. No demonstrated medial meniscal tear. Electronically Signed: Enrico Steven MD at 8:30 EDT Tel , Service support ,
== END ==
PROVIDERS: Family Provider Family Medicine; PCP Family Medicine; Referring Provider Family Medicine; Visit Provider Family Medicine
DX: M25.562 Pain in left knee (principal)
CPT/HCPCS: 73721

== ENCOUNTER → 2019-04-04 15:18 | Outpatient (CLI) | payer MEDICARE, BC, SELFPAY ==
[2018-05-03 14:08] VITALS: BMI 27.4
[2019-04-04 17:30] LABS: PSA,Total - Annual Screen 0.11 ng/mL (0.00-4.00)
== END ==
PROVIDERS: Family Provider Family Medicine; PCP Family Medicine; Referring Provider Urology; Visit Provider Urology
DX: Z12.5 Encounter for screening for malignant neoplasm of prostate (principal)
CPT/HCPCS: 36415; 84153; G0103

== ENCOUNTER → 2019-05-02 10:15 | Outpatient (CLI) | payer MEDICARE, BC, SELFPAY ==
[2019-05-02 09:16] VITALS: BMI 27.4
[2019-05-02 11:18] LABS: AST(SGOT) 25 U/L (15-37); Alanine Aminotransfer ALT/SGPT 28 U/L (16-61); Albumin, Serum 3.6 g/dL (3.2-5.0); Alkaline Phosphatase 65 U/L (45-117); Anion Gap 9 (5-15); BUN 16 mg/dL (7-18); BUN/Creat Ratio 14.4 RATIO (10-20); Bilirubin, Direct 0.12 mg/dL (0.00-0.30); Calcium,Total 8.6 mg/dL (8.5-10.1); Chloride 108 mmol/L (98-107); Cholesterol 165 mg/dL (200); Creatinine, Serum 1.11 mg/dL (0.70-1.30); EST Glomerular Filtration Rate 69 mL/min (>60); Est Glom Filt Rate - Afr Amer 83 mL/min (>60); Globulin 3.5 g/dL (2.2-4.2); Glucose 83 mg/dL (74-106); High Density Lipoprotein 61 mg/dL; Potassium 3.8 mmol/L (3.5-5.1); Protein, Total 7.1 g/dL (6.4-8.2); Sodium Level 142 mmol/L (136-145); Thyroid Stim Hormone (TSH) 1.88 uIU/mL (0.358-3.74); Triglycerides 107 mg/dL; Very Low Density Lipoprotein 21 mg/dL (5-40)
== END ==
PROVIDERS: Family Provider Family Medicine; PCP Family Medicine; Referring Provider Internal Medicine Cardiovascular Disease; Visit Provider Internal Medicine Cardiovascular Disease
DX: I48.0 Paroxysmal atrial fibrillation (principal); E78.00 Pure hypercholesterolemia, unspecified
CPT/HCPCS: 36415; 80048; 80061; 80076; 84443

== ENCOUNTER → 2020-01-10 08:27 | Outpatient (CLI) | payer MEDICARE, BC, SELFPAY ==
[2019-05-02 09:16] VITALS: BMI 27.4
[2020-01-10 08:43] LABS: Absolute Neutrophil Count 3.5 X10^3/uL (2.0-7.7); Basophil# 0.04 X10^3/uL; Basophil% 0.6 % (0-1); Eosinophil# 0.18 X10^3/uL; Eosinophils% 2.8 % (0-5); Hematocrit 42.9 % (37-54); Hemoglobin 14.7 g/dL (13.0-16.5); Mean Corp Hgb Conc 34.3 g/dL (32-36); Mean Corpuscular Volume 93.3 fL (80-94); Mean Platelet Vol. 9.7 fl (6.2-12.0); Monocyte# 0.51 X10^3/uL; NRBC Flagged by Analyzer 0 % (0-5); Neutrophil # 3.53 X10^3/uL (2.7-7.7); Neutrophil % 55.4 % (47-70); Platelet Count 193 K/mm3 (150-450); RBC Distribution Width CV 11.6 % (11.6-14.6); RBC Distribution Width SD 39.1 fl (35.1-43.9); White Blood Count 6.4 K/mm3 (4.4-11.0)
--- NOTE | 2020-01-10 09:00 | NM_ITS ---
CLINICAL: 74-year-old male with history of suspected bone marrow pathology. WHOLE BODY 99m Tc MDP RADIONUCLIDE BONE SCINTIGRAPHY COMPARISON: None available FINDINGS: Following the intravenous administration of 26.0 mCi of 99m Tc MDP, whole body bone images reveal: 1. Increased radiopharmaceutical concentration is identified in the bilateral wrist reticulations, acromioclavicular and sternoclavicular compartments of both shoulders, patellofemoral and medial tibial compartments of both knees, the right ankle, bilateral midfoot, the left forefoot, fifth lumbar vertebra posteriorly on the right, the left elbow, wrists bilaterally. 2. The remaining skeletal structures are scintigraphically unremarkable with normal-appearing renal images and urinary bladder activity identified. Facilitated tracer distribution is demonstrated in the bilateral mandible and maxilla most consistent with periodontal disease and/or periostitis. There is calcification of the bilateral costochondral junctions. NM/Bone Scan Whole Body IMPRESSION: 1. The increase in radiopharmaceutical concentration defined in the bilateral shoulders, both knees, right ankle, midfoot bilaterally, left forefoot, fifth lumbar vertebra, left elbow and both wrist articulations is most consistent with degenerative arthritis. 2. There is no definitive typical scintigraphic evidence of diffuse axial skeletal metastatic disease or a visualized marrow expansion process. Electronically Signed: Arya Ortiz DO at 22:27 EDT Tel , Service support ,
[2020-01-10 09:02] LABS: CRP 3.52 mg/L (0.0-3.0)
[2020-01-10 09:20] LABS: Erythrocyte Sedimentation Rate 4 mm/hr (0-20)
== END ==
PROVIDERS: PCP Family Medicine; Referring Provider Nurse Practitioner; Visit Provider Nurse Practitioner
DX: R93.7 Abnormal findings on diagnostic imaging of other parts of musculoskeletal system (principal)
CPT/HCPCS: 36415; 78306; 85025; 85652; 86140

== ENCOUNTER 2020-01-21 09:09 | Observation (INO) | payer MEDICARE, BC, SELFPAY ==
[2020-01-15 11:05] VITALS: BMI 27.4
[2020-01-21] VITALS (15 sets, daily range): BP systolic 139–213; BP diastolic 61–100; PULSE 46–85; RESP 13–18; TEMP 36.5–36.8; O2SAT 96–100; BMI 27.9; BMI 27.2; BMI 27.3
--- NOTE | 2020-01-21 09:24 | ED.VIS.GEN ---
History of Present Illness Chief Complaint: Chest Pain Informant: Patient Narrative: 74-year-old male with history of paroxysmal A. fib and hyperlipidemia presenting with chest pain. He states that he had 4 episodes of spasm-like chest pain in the upper left side of the chest and then left parasternal. He states he is lasted less than 10 seconds. He was not dizzy, nauseous, diaphoretic, short of breath. He is not had a fever or cough. He has no known exposure to COVID?19. Patient has no history of DVT/PE. He does state that he had a recent flight to [place] within the last 2 months. He denies any leg pain or swelling. Is not on anticoagulation for his A. fib. - Past Medical History (1) Paroxysmal atrial fibrillation Status: Chronic (2) HLD (hyperlipidemia) Status: Chronic Past Medical History - Allergies and Home Meds Allergies/Adverse Reactions: Allergies No Known Allergies Allergy (Verified 05/02/19 09:16) Prior records reviewed: Yes Past Medical History: - - Reviewed and problem list Lives: Spouse/ Significant Other Smoking Status: Never smoker Alcohol: None Drugs: None Review of Systems General: Denies: Chills, Fever, Sweats Eyes: Denies: Visual changes - bilaterally, Diplopia ENT: Denies: Rhinorrhea, Sore throat Cardiovascular: Reports: Chest pain. Denies: Palpitations, Heart racing Respiratory: Denies: Dyspnea, Cough, Dyspnea on exertion Genitourinary: Denies: Dysuria, Hematuria, Frequency Musculoskeletal: Denies: Back pain, Extremity Pain Skin: Denies: Rash, Wounds Neurological: Denies: Headache, Weakness, Numbness Physical Exam Vital Signs/Narrative: Vital Signs Temp Pulse Resp BP Pulse Ox 01/21/20 09:10 97.7 F L 59 L 17 204/75 H 99 Inital Vital Signs reviewed: Yes General: Well nourished, Well developed, No Acute Distress Head: Normocephalic, Atraumatic Eyes: Perrl, EOMI ENT: Moist mucous membranes, No rhinorrhea Cardiovascular: Regular rate, Regular rhythm, No murmurs Respiratory: No distress, CTA bilaterally, Chest nontender Extremities: Nontender, No edema Skin: Normal color, No rash Neurological: Alert, Oriented x3 Psychological: Normal affect Diagnostic/Tx/Re-eval Clinical Impression(s) from Imaging Studies Chest X-Ray 01/21/20 10:21 IMPRESSION: Hyperinflation. No acute abnormality is seen. Electronically Signed: Marquez Cortez, at 10:33 EDT , Service support , Laboratory Data 01/21/20 01/21/20 01/21/20 09:15 09:15 09:15 WBC 6.2 RBC 4.87 Hgb 15.0 Hct 45.0 MCV 92.4 MCH 30.8 MCHC 33.3 RDW Std Deviation 39.4 RDW Coeff of Winifred 11.7 Plt Count 179 MPV 10.1 Immature Gran % (Auto) 0.300 Neut % (Auto) 54.5 Lymph % (Auto) 34.1 [place] % (Auto) 7.8 Eos % (Auto) 2.8 Baso % (Auto) 0.5 Absolute Neuts (auto) 3.4 Absolute Lymphs (auto) 2.10 Nucleated RBC % 0 D-Dimer Quant (PE/DVT) 0.30 Sodium 141 Potassium 3.6 Chloride 105 Carbon Dioxide 29.0 Anion Gap 7 BUN 16 Creatinine 1.12 Estim Creat Clear Calc 61.63 Est GFR (MDRD) Af Amer 82 Est GFR (MDRD) Non-Af 68 BUN/Creatinine Ratio 14.3 Glucose 124 H Calcium 8.7 Troponin I < 0.015 - Rhythm Strip Rhythm Strip: Sinus Rhythm Rate: 60 - EKG Initial EKG Interpretation: Sinus Rhythm, Non-Specific ST Changes Prior: Changed Follow-up EKG Interpretation: Sinus Rhythm, No Acute Injury Pattern Prior: Unchanged - Medical Decision Making Patient presented with chest pain on the left side of his chest. His EKG was normal sinus rhythm with nonspecific ST changes initially. This was a changed EKG from previous in May 2011. Patient's lab work was normal. Troponin was negative. Chest x-ray is negative. Although the patient's heart score is 3 he had another episode of chest pain while in the ER which he described as a tightness. Given nitroglycerin and his pain resolved. It was noticed that his blood pressure was elevated and he did not take his medication however the nitroglycerin did drop his blood pressure. He felt improved. I given the repeat episode of chest pain I will admit him for observation. Impression: 1. Chest pain ED Disposition - Plan for ED Patient: Disposition: Acute Care Hospital [facility]
--- NOTE | 2020-01-21 09:25 | EKG12_ITS ---
Test Reason : REPEAT CP Blood Pressure : / mmHG Vent. Rate : 048 BPM Atrial Rate : 048 BPM P-R Int : 186 ms QRS Dur : 096 ms QT Int : 476 ms P-R-T Axes : 015 -22 015 degrees QTc Int : 425 ms Sinus bradycardia Otherwise normal ECG Confirmed by DOMENICO HENDRICKS ([id number]), editor city JAKE GIRARD ([id number]) on 01/23/2020 8:59:31 AM Referred By: HERMES Confirmed By:DOMENICO HENDRICKS
[2020-01-21 09:41] LABS: Absolute Neutrophil Count 3.4 X10^3/uL (2.0-7.7); Basophil# 0.03 X10^3/uL; Basophil% 0.5 % (0-1); Eosinophil# 0.17 X10^3/uL; Eosinophils% 2.8 % (0-5); Lymphocyte % 34.1 % (19-41); Mean Corp Hgb Conc 33.3 g/dL (32-36); Mean Corpuscular Hgb 30.8 pg (27.0-32.0); Mean Corpuscular Volume 92.4 fL (80-94); Mean Platelet Vol. 10.1 fl (6.2-12.0); Monocyte# 0.48 X10^3/uL; Monocyte% 7.8 % (0-10); NRBC Flagged by Analyzer 0 % (0-5); Neutrophil # 3.35 X10^3/uL (2.7-7.7); Neutrophil % 54.5 % (47-70); Platelet Count 179 K/mm3 (150-450); RBC Distribution Width CV 11.7 % (11.6-14.6); RBC Distribution Width SD 39.4 fl (35.1-43.9); Red Blood Count 4.87 M/mm3 (4.6-6.2); White Blood Count 6.2 K/mm3 (4.4-11.0)
[2020-01-21 09:50] LABS: Anion Gap 7 (5-15); BUN 16 mg/dL (7-18); BUN/Creat Ratio 14.3 RATIO (10-20); Calcium,Total 8.7 mg/dL (8.5-10.1); Chloride 105 mmol/L (98-107); Creatinine, Serum 1.12 mg/dL (0.70-1.30); EST Glomerular Filtration Rate 68 mL/min (>60); Est Glom Filt Rate - Afr Amer 82 mL/min (>60); Estimated Creatinine Clearance 61.63 ml/min; Glucose 124 mg/dL (74-106); Potassium 3.6 mmol/L (3.5-5.1); Sodium Level 141 mmol/L (136-145)
[2020-01-21] MEDS: Aspirin 81 MG TAB.CHEW 324 MG PO (10:08)
--- NOTE | 2020-01-21 10:21 | RAD_ITS ---
STUDY: X-RAY CHEST REASON FOR EXAM: Male, 74 years old. Chest pain TECHNIQUE: Single AP portable view of the chest. COMPARISON: Comparison is made with prior study dated 06/14/2011. FINDINGS: EKG electrodes are seen. Hyperinflation. No acute abnormality is seen. There is no demonstrated pleural abnormality. Normal size heart. Normal mediastinum and randall. Normal visualized pulmonary arteries. There is atherosclerotic calcification of the aortic arch with tortuosity. There are diffuse degenerative changes of the visualized thoracic spine. Normal visualized ribs, clavicles, and shoulders. There is no demonstrated abnormality of the visualized soft tissue structures of the upper abdomen. RAD/Chest 1 View (Portable) IMPRESSION: Hyperinflation. No acute abnormality is seen. Electronically Signed: Marquez Cortez, at 10:33 EDT , Service support ,
--- NOTE | 2020-01-21 11:09 | EKG12_ITS ---
Test Reason : CP ADMISSION Blood Pressure : / mmHG Vent. Rate : 046 BPM Atrial Rate : 046 BPM P-R Int : 186 ms QRS Dur : 096 ms QT Int : 490 ms P-R-T Axes : 024 -15 018 degrees QTc Int : 428 ms Sinus bradycardia Otherwise normal ECG When compared with ECG of 21-JAN-2020 09:11, MANUAL COMPARISON REQUIRED, DATA IS UNCONFIRMED Confirmed by СЕРГЕЙ TRIMBLE, SONIYA ([id number]), health editor SUKHI MARTINEZ ([id number]) on 01/27/2020 1:41:56 PM Referred By: MARTY Confirmed By:CAMILA RUSHING MD
[2020-01-21] MEDS: Nitroglycerin SL (ED/IMG/CATH) 0.4 MG TABLET SUBLINGUAL (11:11)
--- NOTE | 2020-01-21 11:23 | HP.PCM_ITS ---
History of Present Illness Date of Admission: 01/21/20 Chief Complaint: Chest pain The patient is a 74 year old M with a past medical history of paroxysmal A. fib and hyperlipidemia. He was on today through the ED on 01/21/2020 with a complaint of chest pain. Chest pain was left-sided and started on the day of admission while she was in the shower. Chest pain had no aggravating or relieving factors. He denied any lightheadedness or dizziness, palpitations, nausea vomiting or diarrhea. Review of systems otherwise negative. Patient states he last had a stress test 2 years ago on account of chest pain and was negative. Review of systems otherwise negative. ED, vitals showed temperature of 98 Fahrenheit and blood pressure of 167/100 with pulse rate of 85 respiratory rate of 18. Chemistry was unremarkable and CBC was also unremarkable. Initial troponin was less than 0.015. Chest x-ray showed poor inflation with no acute abnormality. Of note, chest pain was relieved by sublingual nitroglycerin in the ED. He has been admitted to be managed for chest pain rule out ACS. [] Past Medical History Past Medical History (Chronic Problems): Chronic Problems (Last Reviewed 05/02/19 @ 09:16 by Argenis Covarrubias) Paroxysmal atrial fibrillation (Chronic) HLD (hyperlipidemia) (Chronic) Medical History: Medical History (Last Reviewed 05/02/19 @ 09:16 by Argenis Covarrubias) Paroxysmal atrial fibrillation (Chronic) I48.0 HLD (hyperlipidemia) (Chronic) E78.5 Paroxysmal atrial tachycardia I47.1 Vertigo Onset Date: ~03/2013 R42 Atrial arrhythmia (Inactive) I49.8 Ventricular ectopy (Inactive) I49.3 Allergies No Known Allergies Allergy (Verified 05/02/19 09:16) Home Medications: Ambulatory Orders Medication Instructions Recorded Aspirin E.C. [Ecotrin] 81 mg PO DAILY@0800 12/03/14 finasteride 5 mg tablet 5 mg PO QDAY 05/23/17 simvastatin 10 mg tablet 10 mg PO QHS #90 tab 08/13/18 flecainide 100 mg tablet 100 mg PO BID #180 tab 05/02/19 metoprolol succinate 25 mg 12.5 mg PO DAILY #45 tab 07/22/19 tablet,extended release 24 hr Surgical History: Surgical History (Last Reviewed 05/02/19 @ 09:16 by Argenis Covarrubias) History of left heart catheterization (LHC) Onset Date: 06/15/11 Z98.890 Lives: Spouse/ Significant Other Smoking Status: Never smoker Alcohol: None Drugs: None Review of Systems Constitutional: Denies: Chills, Fever, Weight Change Eyes: Denies: Blurred vision HEENT: Denies: Head Aches, Sinus Congestion, Sinus Drainage Cardiovascular: Reports: Chest Pain. Denies: Chest Pressure, Chest Tightness, Heaviness, Light Headedness, Orthopnea, Palpitations Respiratory: Denies: Cough, Shortness of breath at rest, Sputum production Gastrointestinal: Denies: Abdominal Pain, Nausea, Vomiting Genitourinary: Denies: Dysuria Musculoskeletal: Denies: Joint Pain, Joint Tenderness Skin: Denies: Rash, Wounds Neurological: Denies: Numbness, Tingling, Focal weakness Psychiatric: Denies: Anxiety, Depression, Homicidal Ideations, Suicidal Ideations Hematologic/ Lymphatic: Denies: Easy Bruising, Easy Bleeding VTE Information - Inpt Only VTE Present on Admission: No VTE Pharm Prophylaxis ordered?: Yes - Physical Exam Vitals/I&O's: Vital Signs Temp Pulse Resp BP Pulse Ox 97.7 F L 53 L 17 167/79 H 99 01/21/20 09:10 01/21/20 11:16 01/21/20 11:16 01/21/20 11:16 01/21/20 10:24 Oxygen Delivery Method Room Air Weight: 200 lb 8 oz Body Mass Index (BMI) 27.9 General: Alert, Oriented x3, Cooperative, No apparent distress HEENT: Atraumatic, PERRLA, EOMI, Normocephalic Oral: Dry Mucosa Neck: Supple, No JVD, Negative Carotid Bruits Lungs: Clear to auscultation, Normal air movement Cardiovascular: Normal S1, Normal S2, No murmurs, Bradycardic Abdomen: Bowel Sounds Present, Soft, Non Tender, Non-Distended, No Hepato- splenomegaly Extremities: No clubbing, No cyanosis, No edema, Capillary Refill Less than 3 Seconds Skin: No rashes, No breakdown Musculoskeletal: No Tenderness to Palpation of Joints or Extremities Lymphatic: No Cervical, Supraclavicular, or Inguinal Adenopathy Neurological: Cranial nerves II-XII grossly intact, Neuro grossly intact, Motor Exam 5/5 strength throughout Psych/Mental Status: Normal Affect, Appropriate, Alert and oriented to time, place, person, mood and affect Laboratory Results 01/21/20 09:15: WBC 6.2, RBC 4.87, Hgb 15.0, Hct 45.0, MCV 92.4, MCH 30.8, MCHC 33.3, RDW Std Deviation 39.4, RDW Coeff of Winifred 11.7, Plt Count 179, MPV 10.1, Immature Gran % (Auto) 0.300, Neut % (Auto) 54.5, Lymph % (Auto) 34.1, [place] % (Auto) 7.8, Eos % (Auto) 2.8, Baso % (Auto) 0.5, Absolute Neuts (auto) 3.4, Absolute Lymphs (auto) 2.10, Nucleated RBC % 0 01/21/20 09:15: Sodium 141, Potassium 3.6, Chloride 105, Carbon Dioxide 29.0, Anion Gap 7, BUN 16, Creatinine 1.12, Estim Creat Clear Calc 61.63, Est GFR (MDRD) Af Amer 82, Est GFR (MDRD) Non-Af 68, BUN/Creatinine Ratio 14.3, Glucose 124 H, Calcium 8.7, Troponin I < 0.015 01/21/20 09:15: D-Dimer Quant (PE/DVT) 0.30 Diagnostic Data Chest X-Ray 01/21/20 10:21 IMPRESSION: Hyperinflation. No acute abnormality is seen. Electronically Signed: Marquez Dana, at 10:33 EDT , Service support , Assessment/Plan 74-year-old admitted with a complaint of chest pain #Chest pain rule out ACS * Admit to PCU with telemetry * Initial troponin negative. EKG showed no acute ST changes. * Cycle troponins x3 * p.o. aspirin 81 mg daily. * subLingual nitroglycerin PRN. * For stress test tomorrow if troponins remain negative. * # paroxysmal A. fib * currently rate and rhythm controlled. EKG showed sinus bradycardia and he states his heart rate is always low because he is on flecainide. * Continue flecainide and metoprolol * #Hyperlipidemia: On statin DVT Prophylaxis: SCDs CODE STATUS: Full code * Patient counseled extensively about different types of CODE STATUS including full code, DNR CCA and DNR CCA. Patient elects to be full code. * Total [id number] time 16 minutes. OBSV E&M: 99817 Initial observation care L2 Procedures: [id number] Advncd Care Plan 30 Min
--- NOTE | 2020-01-21 12:18 | EKG12_ITS ---
Test Reason : CP Blood Pressure : / mmHG Vent. Rate : 060 BPM Atrial Rate : 060 BPM P-R Int : 186 ms QRS Dur : 104 ms QT Int : 440 ms P-R-T Axes : 022 -19 006 degrees QTc Int : 440 ms Normal sinus rhythm Nonspecific ST and T wave abnormality Abnormal ECG Confirmed by DOMENICO HENDRICKS ([id number]), art editor JAKE GIRARD ([id number]) on 01/23/2020 8:59:48 AM Referred By: HODAN Confirmed By:DOMENICO HENDRICKS
[2020-01-21] MEDS: Atorvastatin Calcium 10 MG Tablet 5 MG PO (21:03)
[2020-01-21] MEDS: Flecainide 100 MG Tablet PO (21:03)
[2020-01-22] VITALS (9 sets, daily range): BP systolic 134–161; BP diastolic 64–76; PULSE 45–70; RESP 16–18; TEMP 36.7–36.9; O2SAT 96–97
--- NOTE | 2020-01-22 05:55 | EKG12_ITS ---
Test Reason : AM EKG Blood Pressure : / mmHG Vent. Rate : 046 BPM Atrial Rate : 046 BPM P-R Int : 186 ms QRS Dur : 096 ms QT Int : 506 ms P-R-T Axes : 032 -13 025 degrees QTc Int : 442 ms Sinus bradycardia Otherwise normal ECG When compared with ECG of 21-JAN-2020 13:01, MANUAL COMPARISON REQUIRED, DATA IS UNCONFIRMED Confirmed by СЕРГЕЙ TRIMBLE, SONIYA ([id number]), editorial assistant SUKHI MARTINEZ ([id number]) on 01/27/2020 1:41:36 PM Referred By: MARTY Confirmed By:CAMILA RUSHING MD
[2020-01-22] MEDS: Aspirin E.C. 81 MG Tablet PO (06:05)
[2020-01-22 06:10] LABS: Absolute Neutrophil Count 3.1 X10^3/uL (2.0-7.7); Basophil# 0.02 X10^3/uL; Basophil% 0.4 % (0-1); Eosinophil# 0.16 X10^3/uL; Eosinophils% 2.8 % (0-5); Hematocrit 41.6 % (40-54); Hemoglobin 13.9 g/dL (13.0-16.5); Lymphocyte % 33.4 % (19-41); Mean Corp Hgb Conc 33.4 g/dL (32-36); Mean Corpuscular Hgb 30.8 pg (27.0-32.0); Mean Platelet Vol. 9.7 fl (6.2-12.0); Monocyte# 0.49 X10^3/uL; Monocyte% 8.6 % (0-10); NRBC Flagged by Analyzer 0 % (0-5); Neutrophil # 3.11 X10^3/uL (2.7-7.7); Neutrophil % 54.6 % (47-70); Platelet Count 167 K/mm3 (150-450); RBC Distribution Width CV 11.5 % (11.6-14.6); Red Blood Count 4.52 M/mm3 (4.6-6.2); White Blood Count 5.7 K/mm3 (4.4-11.0)
[2020-01-22 06:34] LABS: Anion Gap 4 (5-15); BUN 16 mg/dL (7-18); BUN/Creat Ratio 15.5 RATIO (10-20); Calcium,Total 8.3 mg/dL (8.5-10.1); Chloride 111 mmol/L (98-107); Creatinine, Serum 1.03 mg/dL (0.70-1.30); EST Glomerular Filtration Rate 75 mL/min (>60); Est Glom Filt Rate - Afr Amer 91 mL/min (>60); Estimated Creatinine Clearance 67.01 ml/min; Glucose 94 mg/dL (74-106); Potassium 3.9 mmol/L (3.5-5.1); Sodium Level 143 mmol/L (136-145)
[2020-01-22] MEDS: 0.9% Saline Lock 10 ML Syringe IV (07:30)
--- NOTE | 2020-01-22 08:33 | NURSING ---
Patient off floor for Stress Test
[2020-01-22] MEDS: Flecainide 100 MG Tablet PO (10:04)
[2020-01-22] MEDS: Finasteride 5 MG Tablet PO (10:04)
[2020-01-22] MEDS: Metoprolol(XL)Succ 25 MG Tablet 12.5 MG PO (10:04)
--- NOTE | 2020-01-22 11:26 | PCM.DC ---
You will use the following diet at home:: Cardiac Your food should be the consistency of: Regular Your liquids should be the consistency of: Regular/Thin Discharge Activity: Return to Normal Activity Weight Bearing Status: Weight bearing as tolerated Call your doctor if you observe: Fever of 101 or Higher, Shortness of breath, Dizziness, Chest pain, Increased palpitations (irregular heartbeat) Instructions: Angina Additional Instructions: check BP every morning and evening at home and keep a log of readings; follow up with testing machine operator and PCP to determine if BP meds need to be adjusted. Allergies/Adverse Reactions: Allergies No Known Allergies Allergy (Verified 05/02/19 09:16) Medications to take at Discharge Aspirin E.C. [Ecotrin] 81 mg PO DAILY@0800 12/03/14 finasteride 5 mg tablet 5 mg PO QDAY 05/23/17 simvastatin 10 mg tablet 10 mg PO QHS #90 tab 08/13/18 flecainide 100 mg tablet 100 mg PO BID #180 tab 05/02/19 metoprolol succinate 25 mg tablet,extended release 24 hr 12.5 mg PO DAILY #45 tab 07/22/19 Primary Care Physician: Otis Theodore MD [Primary Care Provider] - Test Results: Test results from this visit will be discussed in further detail at your follow-up appointment, if applicable. Proposed Discharge Date: 01/22/20
--- NOTE | 2020-01-22 11:39 | PCM.DC.SUM ---
Discharge Date and Diagnosis Date of Admission: 01/21/20 Date of Discharge: 01/22/20 - Primary Discharge Diagnosis Acute Problems: chest pain - Secondary Discharge Diagnosis Chronic Problems: Chronic Problems (Last Reviewed 05/02/19 @ 09:16 by Argenis Covarrubias) Paroxysmal atrial fibrillation (Chronic) HLD (hyperlipidemia) (Chronic) Hospital Course and Treatment Imaging Results: 01/22/20 07:25 Nuclear Stress Test - Treadmil [NM] Routine Diagnostic Data Chest X-Ray 01/21/20 10:21 IMPRESSION: Hyperinflation. No acute abnormality is seen. Electronically Signed: Marquez Cortez, at 10:33 EDT , Service support , Operations: None Procedures: Stress test Summary of Care Provided: The patient is a 74 year old M with a past medical history of paroxysmal A. fib and hyperlipidemia. He was on today through the ED on 01/21/2020 with a complaint of chest pain. Chest pain was left-sided and started on the day of admission while she was in the shower. Chest pain had no aggravating or relieving factors. He denied any lightheadedness or dizziness, palpitations, nausea vomiting or diarrhea. Review of systems otherwise negative. Patient states he last had a stress test 2 years ago on account of chest pain and was negative. Review of systems otherwise negative. ED, vitals showed temperature of 98 Fahrenheit and blood pressure of 167/100 with pulse rate of 85 respiratory rate of 18. Chemistry was unremarkable and CBC was also unremarkable. Initial troponin was less than 0.015. Chest x-ray showed poor inflation with no acute abnormality. Of note, chest pain was relieved by sublingual nitroglycerin in the ED. He has been admitted to be managed for chest pain rule out ACS. Troponins x 3 were negative. He had a stress test on 01/22/2020 which was negative for any evidence of ischemia. Of note, blood pressure was elevated on admission at 204/75. Blood pressure trended down to 166 and 150 systolic and was 134/74 before discharge. Patient insisted that his blood pressure was usually normal at home and in his doctor's office. Blood pressure came down to 134/74, decision was made not to start any other blood pressure medication. Patient is on metoprolol and flecainide for A. fib. Patient counseled that he is to keep a blood pressure log at home and to present the readings to his primary care doctor and planer mill grader for adjustment of blood pressure medications to be made as needed. Patient seen and examined prior to discharge. He had no complaints and felt well. Review of symptoms otherwise negative. Labs and vitals reviewed. Home medication reviewed and reconciled. O/E: Vital Signs Temp Pulse Resp BP Pulse Ox 98.5 F 62 18 134/74 H 96 01/22/20 10:01/22/20 11:01/22/20 10:01/22/20 10:04 01/22/20 10:00 General: Alert, Oriented x3, Cooperative, No apparent distress HEENT: Atraumatic, PERRLA, EOMI, Normocephalic Oral: Dry Mucosa Neck: Supple, No JVD, Negative Carotid Bruits Lungs: Clear to auscultation, Normal air movement Cardiovascular: Normal S1, Normal S2, No murmurs, Bradycardic Abdomen: Bowel Sounds Present, Soft, Non Tender, Non-Distended, No Hepato-splenomegaly Extremities: No clubbing, No cyanosis, No edema, Capillary Refill Less than 3 Seconds Skin: No rashes, No breakdown Musculoskeletal: No Tenderness to Palpation of Joints or Extremities Lymphatic: No Cervical, Supraclavicular, or Inguinal Adenopathy Neurological: Cranial nerves II-XII grossly intact, Neuro grossly intact, Motor Exam 5/5 strength throughout Psych/Mental Status: Normal Affect, Appropriate, Alert and oriented to time, place, person, mood and affect Plan is for discharge home. He is to continue taking his flecainide and metoprolol and to follow up with his PCP and planer mill grader. - Physical Exam Vitals/I&O's: Vital Signs Temp Pulse Resp BP Pulse Ox 98.5 F 62 18 134/74 H 96 01/22/20 10:01/22/20 11:01/22/20 10:01/22/20 10:01/22/20 10:00 Oxygen Delivery Method Room Air Weight: 195 lb 8.8 oz Body Mass Index (BMI) 27.2 Intake and Output for Last 24 Hours 01/20/20 01/21/20 01/22/20 23:59 23:59 23:59 Intake Total 340 / 340 0 / 0 Balance 340 / 340 0 / 0 Laboratory Results 01/21/20 12:46: Troponin I < 0.015 01/21/20 15:10: Troponin I < 0.015 01/22/20 06:02: WBC 5.7, RBC 4.52 L, Hgb 13.9, Hct 41.6, MCV 92.0, MCH 30.8, MCHC 33.4, RDW Std Deviation 39.0, RDW Coeff of Winifred 11.5 L, Plt Count 167, MPV 9.7, Immature Gran % (Auto) 0.200, Neut % (Auto) 54.6, Lymph % (Auto) 33.4, [place] % (Auto) 8.6, Eos % (Auto) 2.8, Baso % (Auto) 0.4, Absolute Neuts (auto) 3.1, Absolute Lymphs (auto) 1.90, Nucleated RBC % 0 01/22/20 06:02: Sodium 143, Potassium 3.9, Chloride 111 H, Carbon Dioxide 28.0, Anion Gap 4 L, BUN 16, Creatinine 1.03, Estim Creat Clear Calc 67.01, Est GFR (MDRD) Af Amer 91, Est GFR (MDRD) Non-Af 75, BUN/Creatinine Ratio 15.5, Glucose 94, Calcium 8.3 L Current Medications Aspirin (Ecotrin) 81 mg PO DAILY@0800 [facility] Last Admin: 01/22/20 06:05 Dose: 81 mg Documented by: Atorvastatin Calcium (Lipitor) 5 mg PO QHS [facility] Last Admin: 01/21/20 21:03 Dose: 5 mg Documented by: Finasteride (Proscar) 5 mg PO DAILY [facility] Last Admin: 01/22/20 10:04 Dose: 5 mg Documented by: Flecainide Acetate (Tambocor) 100 mg PO BID [facility] Last Admin: 01/22/20 10:04 Dose: 100 mg Documented by: Sodium Chloride () 250 mls @ 15 mls/hr IV .[id number] PRN PRN Reason: Saline Flush Sodium Chloride () 250 mls @ 15 mls/hr IV .[id number] PRN PRN Reason: Additional IVPB Infusion Metoprolol Succinate (Toprol Xl (Beta Blake)) 12.5 mg PO DAILY [facility] Last Admin: 01/22/20 10:04 Dose: 12.5 mg Documented by: Nitroglycerin (Nitrostat) 0.4 mg SUBLINGUAL Q5M PRN PRN Reason: CARDIAC/CHEST PAIN Ondansetron HCl (Zofran) 4 mg IV Q8H PRN PRN PRN Reason: NAUSEA/VOMITING Sodium Chloride () 10 - 40 ml IV UD PRN PRN Reason: SALINE FLUSH Last Admin: 01/22/20 07:30 Dose: 10 ml Documented by: Discharge Diet: Low fat/ Low Cholesterol Discharge Activity: Return to Normal Activity Weight Bearing Status: Weight bearing as tolerated Call your doctor if you observe: Fever of 101 or Higher, Shortness of breath, Dizziness, Chest pain, Increased palpitations (irregular heartbeat) Home Medications: Medications to take at Discharge Aspirin E.C. [Ecotrin] 81 mg PO DAILY@0800 12/03/14 finasteride 5 mg tablet 5 mg PO QDAY 05/23/17 simvastatin 10 mg tablet 10 mg PO QHS #90 tab 08/13/18 flecainide 100 mg tablet 100 mg PO BID #180 tab 05/02/19 metoprolol succinate 25 mg tablet,extended release 24 hr 12.5 mg PO DAILY #45 tab 07/22/19 Primary Care Physician: Otis Theodore MD [Primary Care Provider] - Please follow up with your Primary Care Physician in: 1-2 weeks Please Follow Up With: Cash Nathan MD When: 2-4 weeks Patient Instructions: Angina Disposition: Home Patient Condition:: Stable Medical Necessity - Tobacco Use Smoking Status: Never smoker Meaningful Use Info Meaningful Use Diagnoses (Choose all that apply): None applicable OBSV E&M: 20469 Observation care discharge
--- NOTE | 2020-01-22 12:23 | PHA.DC.MR ---
Pharmacy Service has performed discharge medication reconciliation for this patient. The patient's discharge medication list was reviewed for discrepancies and discrepancies were resolved. Home Medications Aspirin E.C. [Ecotrin] 81 mg PO DAILY@0800 12/03/14 finasteride 5 mg tablet 5 mg PO QDAY 05/23/17 simvastatin 10 mg tablet 10 mg PO QHS #90 tab 08/13/18 flecainide 100 mg tablet 100 mg PO BID #180 tab 05/02/19 metoprolol succinate 25 mg tablet,extended release 24 hr 12.5 mg PO DAILY #45 tab 07/22/19
--- NOTE | 2020-01-22 12:24 | STRESSREP ---
Stress Test Report Exercise myocardial perfusion stress test. 74-year-old male with a history of atrial fibrillation. Stress protocol: Resting EKG demonstrates normal sinus rhythm with a rate of 59 bpm normal intervals are noted resting blood pressure is 150/80 mmHg. The patient exercised according to the regular Trevor protocol for a total duration of 9 minutes. The maximum heart rate attained was 131 bpm which was 89% of maximal predicted heart rate the maximum workload was 10.1 metabolic equivalents. At rest there were no ST or T wave changes noted suggest ischemia at peak exercise upsloping ST changes were noted with no meet the criteria for ischemia being less than 1 mm. During recovery there was less than [address] changes noted. The peak blood pressure was 162/62 mmHg with a rate-pressure product of 20,800. No clinical angina was noted no arrhythmias were noted the test was terminated due to attainment of target heart rate. Myocardial perfusion protocol. 11.6 mCi of technetium 99m sestamibi was injected at rest. The patient exercised according to regular Trevor protocol for a total duration of 9 minutes at peak exercise 34.1 mCi of technetium 99m sestamibi was injected stress images were obtained stress and rest images were reconstructed and compared in the short axis vertical long horizontal long axis. Gated images were also obtained. Perfusion SPECT analysis: Review of the images demonstrate normal uptake of tracer noted in all areas of the myocardium the resting images similar demonstrate normal uptake of tracer noted in all areas of the myocardium. No reversibility is noted to suggest ischemia no previous infarct is noted. Gated SPECT analysis: The gated ejection fraction is 62%. Conclusion: Normal exercise myocardial perfusion stress test at a high workload. Preserved ejection fraction. No arrhythmias noted.
--- NOTE | 2020-01-22 12:30 | CASEMGMT ---
This RN SAVANNA to room with NORMAN form at this time, explanation done-pt voices understanding, and signs NORMAN form at this time. Original to chart and copy to pt at this time. Pt voices no further questions/concerns/needs at this time. [place] JANA CORRALES
== END 2020-01-22 11:38 | disposition home or self-care (01) ==
LOC: ED 09:51 → PCU 11:50
PROVIDERS: Admitting Provider Student in an Organized Health Care Education/Training Program; Emergency Provider Student in an Organized Health Care Education/Training Program; PCP Family Medicine; Visit Provider Student in an Organized Health Care Education/Training Program
DX: R07.89 Other chest pain (principal); I48.0 Paroxysmal atrial fibrillation; E78.5 Hyperlipidemia, unspecified; Z79.899 Other long term (current) drug therapy; Z79.82 Long term (current) use of aspirin; R00.1 Bradycardia, unspecified
CPT/HCPCS: 36415; 71045; 78452; 80048; 84484; 85025; 85379; 93005; 93017; 99218; 99284; A9500; A4216; G0378

== ENCOUNTER 2020-03-17 15:00 | Outpatient (RCR) | payer MEDICARE, BC, SELFPAY ==
[2019-05-02 09:16] VITALS: BMI 27.4
--- NOTE | 2019-11-04 17:03 | HP.PTEVAL_ITS ---
Patient's Visit Information SERAFIN RODRIGUEZ is a 74 year old M referred to Physical Therapy by Dr. Otis Theodore MD with a diagnosis of SCIATICAL PAIN. Date of Evaluation: 11/04/19 Physical Therapist: Serafin Lou PT, Cert MDT, OCS - Visit Plan Frequency: 2x /Week Duration: 4 Weeks Plan: PT INTERVENTIONS LUMBAR FLEXION ,DLS.POSTURAL EX'S ,LE FLEXABILITY,MODALTIES - Subjective This 74 y/o female presents to physical therapy with sciatica pain . Patient developed right sciatica 2 months ago without inscidous onset,sitting. Seen DR Theodore recommended PT and heel lift left leg. No diagnostics or MEDS. Aggraveting factors walking,standing less than 5mins. Alleviating factors sitting resting. Coughing/sneezing -. Loaction of symptoms right glut radiates to foot describe ache/weakness. When walking leg fells as though gives out. B owel/bladder-. Sleeping okay at night. Patient has has sciatica symptoms prior. Patients symptoms affects ADL's ,houseworks and function. VOCATION: retired. SOCAIL: . HOBIES: golfing - Pain Right Back Pain Intensity (Out of 10): 1 Pain Intensity Range: 10 Right Lower Extremity Pain Intensity (Out of 10): 9 Comment: glutc-foot worse with standing - Objective POSTURE: mild foward posture. GAIT: normal bridget. PALAPTION: unremarkable. NEURO: denies parathesia/tingling,reflexes L3-4,L4-5,L5-S1 1/3. FLEXABLITY: hams mod tight. SYMMTRIES: left leg slightly shorter. LUMBAR ROM: flexion min/mod loss,extension min/mod loss,side glides min /mod loss pain on right - Special Tests L/S Slump test left side: Negative L/S Slump test right side: Negative L/S Left Straight Leg Raise: Negative L/S Right Straight Leg Raise: Negative Lumbar Standing: Flexion - Mechanical Response: No effect Lumbar Standing: Flexion - Symptoms During Testing: No effect Lumbar Standing: Flexion - Symptoms After Testing: No effect Lumbar Standing: Extension - Symptoms During Testing: Increases Lumbar Standing: Extension - Symptoms After Testing: No worse Comments:: RIGHT L-S - Goals Goal 1:: Independant with HEP. Goal Time Frame: 4-6 Weeks Goal 2:: Patient to decrease right radicular symptoms by 50% or> to improve function Goal Time Frame: 4-6 Weeks Goal 3:: Patient to increase lumbar ROM for function of recovery Goal Time Frame: 4-6 Weeks Goal 4:: Patient be d/c to prophalaxis Goal Time Frame: 4-6 Weeks Goal 5:: Patient improve back owestry score by 5 points or > to improve QOL Goal Time Frame: 4-6 Weeks - Rehabilitation Potential Physical Therapy Diagnosis: Patient has right lumbar radiculoathy due possible lateral stenosis with symptoms worse with. walking and standing affects ADLS' and function better with sitting. Rehabilitation Potential: Good - Anticipated Interventions Patient/Client Instruction: Educate patient on: Condition, Plan of Care For the Purpose of:: To decrease pain, To increase ROM, To improve muscle performance and motor function, To improve ability to perform ADL's, To increase tolerance to activity/condition/position, To improve ability of physical actions for home/community/work/leisure, To improve health of tissue, To decrease soft tissue restriction, To increase flexibility/ROM, To reduce risk of recurrence, To improve ability to perform tasks related to life management Therapeutic Exercise to Include: Strength training, Body mechanics, Postural training, Flexibilty training, Dynamic Lumbar Stabilization For the Purpose of:: To decrease pain, To increase ROM, To improve muscle performance and motor function, To improve ability to perform ADL's, To increase tolerance to activity/condition/position, To improve ability of physical actions for home/community/work/leisure, To improve health of tissue, To decrease soft tissue restriction, To increase flexibility/ROM, To reduce risk of recurrence, To improve ability to perform tasks related to life management TENS: Yes IF ES: Yes Cryotherapy (ice pack, ice massage): Yes Thermo therapy (hot pack): Yes Ultrasound (thermal/non thermal): Yes For the Purpose of:: To decrease pain, To increase ROM, To improve nutrient delivery to tissue, To increase oxygenation perfusion, To improve health of tissue, To decrease soft tissue restriction Thank you for the opportunity to evaluate your patient. For Medicare and Medicare HMO plans, please review the plan of care and approve it. It will need to be FAXED BACK to us at [phone] for Medicare purposes. For Medicare only, by signing this I certify the plan of care. Please let me know if there are questions or concerns regarding this plan of care. Physician Signature: Date:
--- NOTE | 2019-12-02 15:52 | HP.PTREVAL_ITS ---
Dr. Otis Theodore MD, It has been my pleasure to treat SERAFIN RODRIGUEZ over the last 9 visits for SCIATICA PAIN. Please see the progress note below for an update on the physical therapy plan of care! Subjective: Doing better overall ,,morning better . No tingling in leg and foot. Mild lateral hip Objective/Function: POSTURE: mild foward posture. GAIT: reciprocal pattern. PALAPTION: unremarkable. MMT: quads/hams/hip 4/5,ankle 4/5. LUMBAR ROM: flexion mid loss,extensio min loss Plan Plan: PT INTERVENTIONS LUMBAR FLEXION ,DLS.POSTURAL EX'S ,LE FLEXABILITY,MODALTIES Goals Goal 1:: Independant with HEP. Goal Time Frame: 4-6 Weeks Goal 2:: Patient to decrease right radicular symptoms by 50% or> to improve function Goal Time Frame: 4-6 Weeks Goal 3:: Patient to increase lumbar ROM for function of recovery Goal Time Frame: 4-6 Weeks Goal 4:: Patient be d/c to prophalaxis Goal Time Frame: 4-6 Weeks Goal 5:: Patient improve back owestry score by 5 points or > to improve QOL Goal Time Frame: 4-6 Weeks Anticipated Interventions Patient/Client Instruction: Educate patient on: Condition, Plan of Care For the Purpose of:: To decrease pain, To increase ROM, To improve muscle performance and motor function, To improve ability to perform ADL's, To increase tolerance to activity/condition/position, To improve ability of physical actions for home/community/work/leisure, To improve health of tissue, To decrease soft tissue restriction, To increase flexibility/ROM, To reduce risk of recurrence, To improve ability to perform tasks related to life management Therapeutic Exercise to Include: Strength training, Body mechanics, Postural training, Flexibilty training, Dynamic Lumbar Stabilization For the Purpose of:: To decrease pain, To increase ROM, To improve muscle performance and motor function, To improve ability to perform ADL's, To increase tolerance to activity/condition/position, To improve ability of physical actions for home/community/work/leisure, To improve health of tissue, To decrease soft tissue restriction, To increase flexibility/ROM, To reduce risk of recurrence, To improve ability to perform tasks related to life management TENS: Yes IF ES: Yes Cryotherapy (ice pack, ice massage): Yes Thermo therapy (hot pack): Yes Ultrasound (thermal/non thermal): Yes For the Purpose of:: To decrease pain, To increase ROM, To improve nutrient delivery to tissue, To increase oxygenation perfusion, To improve health of tissue, To decrease soft tissue restriction Please do not hesitate to contact me at [phone] by phone or Fax: if you have questions or concerns regarding this new plan of care! Sincerely, Serafin Lou, PT, Cert MDT, OCS
--- NOTE | 2020-01-20 16:28 | HP.PTREVAL ---
Dr. Otis Theodore MD, It has been my pleasure to treat SERAFIN RODRIGUEZ over the last 15 visits for SCIATICA PAIN. Please see the progress note below for an update on the physical therapy plan of care! Subjective: Had MRI and bone scan. Has mild bulging disc. Tingling to the foot R. Walking is far worse for distances. Saw DRAFTER (CAD) ELECTRICAL at [facility] and showed disc bulge and cynovial cyst. Bone scan ruled out infection and is inflammation but not infection. Nothing else for ortho to do. Suggestion was PT. Doing stretches and DKC adn SLR at home. Objective/Function: Pt does not want injection or home TENS unit. Is willing for more PT. L/S AROM R SB and ext both painful R side, L side is stretching on R, flexion is painfree. Piriformis mildly tight. HS mildly tight. Hip flexors mild tight. LE strength and reflexes symmetrical adn functional. Able to find adn hold neutral spine. New script from ortho doctor and fair prognosis. Plan Plan: 2x/week x 3-4 weeks for Please focus on NS position in stadning and strength to tolerance. Also progress NS quadruped adn prone, supine home strength. Consider water if not improving, Pt will let us know if he wants home TENS unit eventually. Goals Goal 1:: Independant with HEP. Goal Time Frame: 4-6 Weeks Goal Progress: Progressing Goal 2:: Patient to decrease right radicular symptoms by 50% or> to improve function Goal Time Frame: 4-6 Weeks Goal Progress: Progressing,a pprop Goal 3:: Patient to increase lumbar ROM for function of recovery Goal Time Frame: 4-6 Weeks Goal Progress: Goal Met Goal 4:: Patient be d/c to prophalaxis Goal Time Frame: 4-6 Weeks Goal Progress: not yet Goal 5:: Patient improve back owestry score by 5 points or > to improve QOL Goal Time Frame: 4-6 Weeks Goal Progress: not yet, approp. Goal 6:: I appropriate NS strength giving symptom improvement for 8 hours. Goal Time Frame: 2-4 Weeks Goal Progress: NEW GOAL Anticipated Interventions Patient/Client Instruction: Educate patient on: Condition, Plan of Care For the Purpose of:: To decrease pain, To increase ROM, To improve muscle performance and motor function, To improve ability to perform ADL's, To increase tolerance to activity/condition/position, To improve ability of physical actions for home/community/work/leisure, To improve health of tissue, To decrease soft tissue restriction, To increase flexibility/ROM, To reduce risk of recurrence, To improve ability to perform tasks related to life management Therapeutic Exercise to Include: Strength training, Body mechanics, Postural training, Flexibilty training, Dynamic Lumbar Stabilization For the Purpose of:: To decrease pain, To increase ROM, To improve muscle performance and motor function, To improve ability to perform ADL's, To increase tolerance to activity/condition/position, To improve ability of physical actions for home/community/work/leisure, To improve health of tissue, To decrease soft tissue restriction, To increase flexibility/ROM, To reduce risk of recurrence, To improve ability to perform tasks related to life management TENS: Yes IF ES: Yes Cryotherapy (ice pack, ice massage): Yes Thermo therapy (hot pack): Yes Ultrasound (thermal/non thermal): Yes For the Purpose of:: To decrease pain, To increase ROM, To improve nutrient delivery to tissue, To increase oxygenation perfusion, To improve health of tissue, To decrease soft tissue restriction Please do not hesitate to contact me at [phone] by phone or if you have questions or concerns regarding this new plan of care! Sincerely, Umesh Espitia, DPT, OCS, CSCS
--- NOTE | 2020-02-19 13:40 | HP.PTREVAL_ITS ---
Dr. Otis Theodore MD, It has been my pleasure to treat SERAFIN RODRIGUEZ over the last 22 visits for SCIATICA PAIN. Please see the progress note below for an update on the physical therapy plan of care! Subjective: After therapy 30 minutes feels good. Returns quickly. pain down R leg to 7/10. golfing Monday was bad and could not wait to finish. Saw chiropractor yesterday and felt great. Relief did not last long. Doing stretches and strengthening at home. Golfing 4x/week and is uncomfortable after. Does well in the morning. Worse as he does more throughout the day. Fairly comfortable with sitting. Ortho said he is not a surgical candidate. Objective/Function: AROM L/S is good today and without pain after his therapy sessiona lthough there is some R sided tightness with B SB. Walks normal and moving well. OVERALL HE IS COMPLIANT WITH STRETCHING AND FEELS BETTER AFTERWARD BUT NOT FOR LONG. SBJCTIVE COMPLAINTS STILL PROBLEMATIC MORE THAN MOVEMENT. aPPROPRIATE TO CONTINUE TOWARD I GYM PROGRAM WITH FAIR PROGNOSIS FOR THAT GOAL AND QUESTIONABLE FOR IMPROVEMENT OF PAIN SHORT TERM. APPROPRIATE FOR SECOND OPI NION ORTHO, CONTINUED CHIRO ADN POSSIBLE CONSIDERATION OF INJECTION IF WILLING. DOES NOT WANT TENS UNIT AT THIS TIME. Plan Plan: APPROPRIATE TO GET MORE AGGRESSIVE WITH STRENGTH IN GYMA DN WORK TO I OVERALL BODY AND CORE STRENGTH EX WITH LIST ONCE TOLERANCE ESTABLISHED. Goals Goal 1:: Independant with HEP. Goal Time Frame: 4-6 Weeks Goal Progress: STRETCHING Goal 2:: Patient to decrease right radicular symptoms by 50% or> to improve function Goal Time Frame: 4-6 Weeks Goal Progress: Not Progressing Goal 3:: Patient to increase lumbar ROM for function of recovery Goal Time Frame: 4-6 Weeks Goal Progress: Goal Met Goal 4:: Patient be d/c to prophalaxis Goal Time Frame: 4-6 Weeks Goal Progress: AFTER STRENGTH Goal 5:: Patient improve back owestry score by 5 points or > to improve QOL Goal Time Frame: 4-6 Weeks Goal Progress: Not Progressing Goal 6:: I appropriate NS strength giving symptom improvement for 8 hours. Goal Time Frame: 2-4 Weeks Goal Progress: NEEDS GYM, APPROP Anticipated Interventions Patient/Client Instruction: Educate patient on: Condition, Plan of Care For the Purpose of:: To decrease pain, To increase ROM, To improve muscle performance and motor function, To improve ability to perform ADL's, To increase tolerance to activity/condition/position, To improve ability of physical actions for home/community/work/leisure, To improve health of tissue, To decrease soft tissue restriction, To increase flexibility/ROM, To reduce risk of recurrence, To improve ability to perform tasks related to life management Therapeutic Exercise to Include: Strength training, Body mechanics, Postural training, Flexibilty training, Dynamic Lumbar Stabilization For the Purpose of:: To decrease pain, To increase ROM, To improve muscle performance and motor function, To improve ability to perform ADL's, To increase tolerance to activity/condition/position, To improve ability of physical actions for home/community/work/leisure, To improve health of tissue, To decrease soft tissue restriction, To increase flexibility/ROM, To reduce risk of recurrence, To improve ability to perform tasks related to life management TENS: Yes IF ES: Yes Cryotherapy (ice pack, ice massage): Yes Thermo therapy (hot pack): Yes Ultrasound (thermal/non thermal): Yes For the Purpose of:: To decrease pain, To increase ROM, To improve nutrient delivery to tissue, To increase oxygenation perfusion, To improve health of tissue, To decrease soft tissue restriction Please do not hesitate to contact me at [phone] by phone or if you have questions or concerns regarding this new plan of care! Sincerely, Umesh Espitia, DPT, OCS, CSCS
--- NOTE | 2020-03-17 15:51 | HP.PTDCSUM ---
It has been my pleasure to treat SERAFIN RODRIGUEZ referred by Dr. Otis Theodore MD, with the diagnosis of SCIATICA PAIN for a total of 32 visit(s). Discharge Date: 03/17/20 Please see the following information for a summary of their discharge status. Subjective: Incremental slow improvements. Still golfing 3x/week. Exercises help but not long lasting. Doing HEP at home and managing with ice and heat at home are helpful. Went to [place] Monday and walked alot at [place] and needed to stop alot to stretch. R LE pain persists with walking, better with tylenol. Tolerable discomfort. Will see Dr. Gaston tomorrow and see what he thinks. Right Back Pain Intensity (Out of 10): 2 Right Lower Extremity Pain Intensity (Out of 10): 0 % Improvement: 25 Objective/Function: AROM fairly good today with some R LB pinching with ext and flexion. Slow movmement but biggest problem is walking a block or longer creates R leg pain and that is not improving. Goal 1:: Independant with HEP. Goal Progress: STRETCHING Goal 2:: Patient to decrease right radicular symptoms by 50% or> to improve function Goal Progress: Not Progressing Goal 3:: Patient to increase lumbar ROM for function of recovery Goal Progress: Goal Met Goal 4:: Patient be d/c to prophalaxis Goal Progress: see Dr. Gaston Goal 5:: Patient improve back owestry score by 5 points or > to improve QOL Goal Progress: Not Progressing Goal 6:: I appropriate NS strength giving symptom improvement for 8 hours. Goal Progress: Goal Met Plan: Pt to ortho opinion tomorrow. Discharge Comments: Pt to ortho for second opinion tomorrow, Dr. Gaston. If there are questions or concerns regarding this patient's physical therapy, please feel free to call me at [phone]. Thank you for the referral of this patient. Sincerely, Umesh Espitia, DPT, OCS, CSCS
== END 2020-03-17 19:00 | disposition home or self-care (01) ==
LOC: PT 15:00
PROVIDERS: PCP Family Medicine; Referring Provider Nurse Practitioner Acute Care; Visit Provider Family Medicine
DX: M54.40 Lumbago with sciatica, unspecified side (principal); M48.062 Spinal stenosis, lumbar region with neurogenic claudication
CPT/HCPCS: 97012; 97014; 97035; 97110; 97162; 97164; 97530; G0283

== ENCOUNTER → 2020-04-03 09:54 | Outpatient (CLI) | payer MEDICARE, BC, SELFPAY ==
[2020-04-02 09:37] VITALS: BMI 27.3
[2020-04-03 08:21] LABS: AST(SGOT) 17 U/L (15-37); Alanine Aminotransfer ALT/SGPT 24 U/L (16-61); Albumin, Serum 3.7 g/dL (3.2-5.0); Alkaline Phosphatase 82 U/L (45-117); Bilirubin, Direct 0.09 mg/dL (0.00-0.30); Cholesterol 171 mg/dL (200); Globulin 3.9 g/dL (2.2-4.2); High Density Lipoprotein 88 mg/dL; Protein, Total 7.6 g/dL (6.4-8.2); Triglycerides 45 mg/dL; Very Low Density Lipoprotein 9 mg/dL (5-40)
--- NOTE | 2020-04-03 09:55 | ECHOCS_ITS ---
Reason For Study: ATRIAL FIB-FLUTTER Procedure This was a 2D Doppler, Color Flow transthoracic echocardiogram. Exam performed in department. Left Ventricle Normal LV size. The estimated ejection fraction is 60 %. Normal diastology for age. No regional wall motion abnormalities noted. Right Ventricle Normal RV size. Normal systolic function. Atria Normal left atrium. Normal right atrium. Mitral Valve Normal mitral valve. Tricuspid Valve Normal tricuspid valve. Mild tricuspid valve insufficiency. Pulmonary artery systolic pressure is 35 mmHg. Aortic Valve Trisinus/trileaflet aortic valve. Pulmonic Valve The pulmonic valve is not well visualized. Great Vessels Normal aortic root. The pulmonary artery is normal size. Normal inferior vena cava. Pericardium/Pleural No pericardial effusion. Medication 22 gauge I.V. with prn adaptor inserted into right arm. Diluted definity 4ml given slow IV push to enhance endocardial definition. MMode/2D Measurements & Calculations LVIDd: 5.2 cm IVSd: 0.81 cm Ao root diam: 3.1 cm LVIDs: 3.4 cm LVPWd: 0.90 cm RVDd: 3.2 cm FS: 33.8 % LAV(MOD-bp): 54.7 ml LVAd ap4: 33.6 cm2 SV(MOD-sp4): 68.0 ml LAV(MOD-bp) Indexed: 26.1 ml/m2 EDV(MOD-sp4): 113.8 ml LAV(MOD-sp2): 53.8 ml EDV(sp4-el): 117.7 ml LAV(MOD-sp4): 55.7 ml LVAs ap4: 19.5 cm2 ESV(MOD-sp4): 45.8 ml ESV(sp4-el): 48.0 ml EF(MOD-sp4): 59.8 % EF(sp4-el): 59.2 % SV(sp4-el): 69.7 ml LA A4 area: 19.8 cm2 LA dimension(2D): 4.0 cm RA A4 area: 17.5 cm2 Time Measurements MV dec time: 0.26 sec Doppler Measurements & Calculations MV E max wilson: 72.3 cm/sec Lat Peak E' Wilson: 14.0 cm/sec Med Peak E' Wilson: 8.1 cm/sec MV A max wilson: 62.7 cm/sec E/E' lat: 5.2 E/E' med: 8.9 MV E/A: 1.2 Ao V2 max: 132.5 cm/sec LV V1 max: 91.3 cm/sec PA V2 max: 95.1 cm/sec Ao max P.0 mmHg LV V1 max P.3 mmHg TR max wilson: 280.1 cm/sec TR max P.4 mmHg Interpretation Summary Normal LV size. The estimated ejection fraction is 60 %. No regional wall motion abnormalities noted. Normal diastology for age. Mild tricuspid valve insufficiency. Ordering Physician: Cash Nathan Referring Physician: CYNDY ART Performed By: Cheri Londono RDCS
== END ==
PROVIDERS: PCP Family Medicine; Referring Provider Internal Medicine Cardiovascular Disease; Visit Provider Internal Medicine Cardiovascular Disease
DX: E78.5 Hyperlipidemia, unspecified (principal); I48.0 Paroxysmal atrial fibrillation
CPT/HCPCS: 36415; 80061; 80076; 93306; Q9957; A4216; C8929

== ENCOUNTER → 2020-11-02 | Outpatient (CLI) | payer MEDICARE, BC, SELFPAY ==
[2020-04-02 09:37] VITALS: BMI 27.3
== END | disposition home or self-care (01) ==
LOC: LABSPEC 16:44
PROVIDERS: PCP Family Medicine; Visit Provider Nurse Practitioner Adult Health
DX: N45.1 Epididymitis (principal)
CPT/HCPCS: 87086

== ENCOUNTER 2020-12-06 23:20 | Emergency (ER) | payer MEDICARE, BC, SELFPAY ==
[2020-04-02 09:37] VITALS: BMI 27.3
[2020-12-06 23:21] VITALS: BP 167/67; PULSE 47; RESP 16; TEMP 36.8; O2SAT 98; BMI 25.4
--- NOTE | 2020-12-06 23:30 | EKG12_ITS ---
Test Reason : DYSRYTHMIA Blood Pressure : / mmHG Vent. Rate : 045 BPM Atrial Rate : 045 BPM P-R Int : 184 ms QRS Dur : 098 ms QT Int : 488 ms P-R-T Axes : 113 -10 034 degrees QTc Int : 422 ms Sinus bradycardia Otherwise normal ECG Confirmed by SCHUYLER TRIMBLE, MANOJ ([id number]), design editor SUKHI MARTINEZ ([id number]) on 12/09/2020 9:21:34 AM Referred By: SRIRAM Confirmed By:MANOJ PAYAN MD
--- NOTE | 2020-12-06 23:30 | EX.ED.DYSGE1 ---
HPI History of Present Illness Chief Complaint: Abd Pain Informant: patient Narrative Narrative: 75-year-old male presents to the emergency department via EMS. He tells me that he was laying in bed not yet asleep when he developed a severe pain in the epigastric region. It did not radiate to the back. He states it is subsequently calm down. While he was having the pain he states that he was very sweaty and weak. He notes a history of atrial fibrillation and takes metoprolol and flecainide. He also takes simvastatin. He is not currently on any anticoagulants. Recently treated with doxycycline and later Cipro for prostatitis. He tells me that while his prostatitis symptoms have resolved it is left him with a bit of an upset stomach. Prehospital EKG was reviewed and shows a sinus bradycardia. He notes that this evening he did eat a good amount of food with a couple of alcoholic drinks. [facility] Medical History (Updated 12/07/20 @ 02:[address] Erick Tinoco DO) Atrial arrhythmia Bulging lumbar disc HLD (hyperlipidemia) Paroxysmal atrial fibrillation Paroxysmal atrial tachycardia Segmental and somatic dysfunction of lumbar region Segmental and somatic dysfunction of pelvic region Ventricular ectopy Vertigo (~03/2013) Home Medications aspirin 81 mg PO DAILY@0800 12/03/14 [History Last Taken 01/20/20 10:00] finasteride 5 mg tablet 5 mg PO QDAY 05/23/17 [History Last Taken 01/20/20 21:00] flecainide 100 mg tablet 100 mg PO BID #180 tab 04/02/20 [Rx Last Taken Unknown] simvastatin 10 mg tablet 10 mg PO .M// #90 tab 04/02/20 [Rx Last Taken Unknown] metoprolol succinate 25 mg tablet,extended release 24 hr See Rx Instructions .ROUTE .COMPLEX #45 tab 07/03/20 [Rx Last Taken Unknown] Allergy/AdvReac Type Severity Reaction Status Date / Time No Known Allergies Allergy Verified 03/18/20 13:11 Family History Father CAD (coronary artery disease) Myocardial infarction, Onset Age: 62 Brother AIDS Surgical History History of left heart catheterization (LHC) (06/15/11) Social History Smoking Status: Never smoker alcohol intake: current alcohol intake frequency: a few times a week Alcohol type: beer and hard liquor substance use type: does not use caffeine: No what type of physical activity do you participate in: walking and weight training frequency: 3-4 times per week duration: 45-60 minutes/day seatbelt use: always do you feel safe at home: Yes ROS ROS ED Constitutional Constitutional ED: Denies chills or weight loss Eyes Eyes: Denies change in vision or diplopia ENT ENT ED: Denies ear pain, rhinorrhea or sore throat Cardiovascular Cardiovascular: Denies chest pain, orthopnea, palpitations or racing heartbeat Respiratory/Chest Respiratory/Chest: Denies cough, dyspnea or orthopnea Gastrointestinal Gastrointestinal: Reports abdominal pain; Denies diarrhea, nausea or vomiting Genitourinary Genitourinary ED: Denies dysuria, hematuria or urinary frequency Musculoskeletal Musculoskeletal: Denies arthralgias or myalgias Integumentary Denies abscess or rash Neurologic Neurologic: Denies headache(s) or weakness Psychiatric Psychiatric: Denies anxiety, depression, suicidal ideation or suicidal thoughts Endocrine Endocrinology: Denies polydipsia, polyphagia or polyuria Allergic/Immunologic Allergic/Immunologic ED: Denies mouth swelling, tongue swelling or urticaria EXAM Physical Exam Const Vital Signs: 12/06/20 23:21 12/07/20 02:16 12/07/20 03:02 Temperature 98.2 F Temperature Source Oral Pulse Rate 47 L 50 L 55 L Respiratory Rate 16 15 18 Blood Pressure 167/67 H 153/56 H 132/70 H Blood Pressure Mean 100 88 Pulse Ox 98 98 97 Oxygen Delivery Method Room Air Room Air Positive well nourished and well developed General Appearance ED: well developed HEENT Reports normocephalic, head/scalp atraumatic and moist mucous membranes Eyes PERRL and EOMs intact bilaterally Neck no lymphadenopathy, supple and no JVD Resp normal respiratory effort and clear to auscultation bilaterally Cardio regular rate, regular rhythm and no murmurs GI normal to inspection, nondistended, normoactive bowel sounds and non-tender Palpation: soft Back/Spine no CVA tenderness and normal ROM Extremity normal to inspection General Extremety ED: Negative for edema General Extremity: Negative for edema Neuro oriented x3 and CN's II-XII intact bilaterally Sensorium / Orientation: alert Motor Exam: strength 5/5 throughout Psych mental status grossly normal Mood & Affect: Negative for depressed or tearful Skin no rashes or lesions noted and no wounds MDM MDM MDM Narrative Medical decision making narrative: Basic blood work was obtained is essentially negative. 2 sets of troponin negative. EKG sinus bradycardia. CT the abdomen pelvis shows large amount of food in the stomach. A few air-fluid levels but not obstructed. At this point I think the patient is safe for discharge. He has had no further symptoms. Follow-up as needed Lab Data Attestation: I reviewed the patient's lab results. Labs: Laboratory Results - last 24 hr 12/06/20 12/07/20 12/07/20 23:55 00:24 02:10 WBC 7.3 RBC 4.57 L Hgb 14.1 Hct 41.8 MCV 91.5 MCH 30.9 MCHC 33.7 RDW Std Deviation 40.3 RDW Coeff of Winifred 12.1 Plt Count 161 MPV 9.9 Immature Gran % (Auto) 0.500 Neut % (Auto) 57.6 Lymph % (Auto) 31.8 Sioux % (Auto) 7.7 Eos % (Auto) 2.0 Baso % (Auto) 0.4 Absolute Neuts (auto) 4.2 Absolute Lymphs (auto) 2.33 Nucleated RBC % 0 Sodium 143 Potassium 3.6 Chloride 106 Carbon Dioxide 27.0 Anion Gap 10 BUN 18 Creatinine 0.93 Estim Creat Clear Calc 75.33 Est GFR (MDRD) Af Amer 102 Est GFR (MDRD) Non-Af 84 BUN/Creatinine Ratio 19.4 Glucose 98 Calcium 8.6 Total Bilirubin 0.30 AST 130 H ALT 81 H Alkaline Phosphatase 79 Troponin I High Sens 5.8 7.9 Total Protein 6.4 Albumin 3.3 Globulin 3.1 Albumin/Globulin Ratio 1.1 Lipase 115 Radiography Diagnostic Testing: Radiology Impression Abdomen/Pelvis CT 12/07/20 00:58 IMPRESSION: Multiple fluid-filled small bowel loops, nonspecific finding which can be seen with acute enteritis. No other acute finding. Normal appendix. Chronic findings as above. Electronically Signed: Derik Sheffield MD at 2:15 EDT Tel , Service support , EKG Initial EKG: Attestation: I personally reviewed and interpreted this EKG as follows: Comments: EKG demonstrates a sinus bradycardia at a rate of 45 bpm. No concerning features of ACS or ectopy noted. Prior: Unchanged Discharge Plan Triage Chief Complaint: Abd Pain ED Provider: Erick Tinoco Dx/Rx/DC Orders Clinical Impression: Abdominal pain, acute Instructions: Abdominal Pain Prescriptions: No Action finasteride 5 mg tablet 5 mg PO QDAY RF: 0 flecainide 100 mg tablet 100 mg PO BID Qty: 180 RF: 3 simvastatin 10 mg tablet 10 mg PO .// Qty: 90 RF: 3 aspirin 81 MG tablet 81 mg PO DAILY@0800 RF: 0 metoprolol succinate 25 mg tablet extended release 24 hr See Rx Instructions .ROUTE .COMPLEX Qty: 45 RF: 3 Primary Care Provider: Otis Theodore Referrals: Otis Theodore MD [Primary Care Provider] - As Needed Disposition Disposition: Home, Self Care Discharge Date/Time: 12/07/20 03:03
[2020-12-07 00:12] LABS: Absolute Lymphocyte Count 2.33 X10^3/uL (0.83-4.51); Absolute Neutrophil Count 4.2 X10^3/uL (2.0-7.7); Basophil# 0.03 X10^3/uL; Basophil% 0.4 % (0-1); Eosinophil# 0.15 X10^3/uL; Hematocrit 41.8 % (40-54); Hemoglobin 14.1 g/dL (13.0-16.5); Lymphocyte # 2.33 X10^3/ul (0.83-4.51); Lymphocyte % 31.8 % (19-41); Mean Corp Hgb Conc 33.7 g/dL (32-36); Mean Corpuscular Hgb 30.9 pg (27.0-32.0); Mean Corpuscular Volume 91.5 fL (80-94); Mean Platelet Vol. 9.9 fl (6.2-12.0); Monocyte# 0.56 X10^3/uL; Monocyte% 7.7 % (0-10); NRBC Flagged by Analyzer 0 % (0-5); Neutrophil # 4.21 X10^3/uL (2.7-7.7); Neutrophil % 57.6 % (47-70); Platelet Count 161 K/mm3 (150-450); RBC Distribution Width CV 12.1 % (11.6-14.6); RBC Distribution Width SD 40.3 fl (35.1-43.9); Red Blood Count 4.57 M/mm3 (4.6-6.2); White Blood Count 7.3 K/mm3 (4.4-11.0)
[2020-12-07 00:50] LABS: ALB/GLOB Ratio 1.1 RATIO (0.9-2.4); AST(SGOT) 130 U/L (15-37); Alanine Aminotransfer ALT/SGPT 81 U/L (16-61); Albumin, Serum 3.3 g/dL (3.2-5.0); Alkaline Phosphatase 79 U/L (45-117); Anion Gap 10 (5-15); BUN 18 mg/dL (7-18); BUN/Creat Ratio 19.4 RATIO (10-20); Calcium,Total 8.6 mg/dL (8.5-10.1); Chloride 106 mmol/L (98-107); Creatinine, Serum 0.93 mg/dL (0.70-1.30); EST Glomerular Filtration Rate 84 mL/min (>60); Est Glom Filt Rate - Afr Amer 102 mL/min (>60); Estimated Creatinine Clearance 75.33 ml/min; Globulin 3.1 g/dL (2.2-4.2); Glucose 98 mg/dL (74-106); Lipase 115 U/L (73-393); Potassium 3.6 mmol/L (3.5-5.1); Protein, Total 6.4 g/dL (6.4-8.2); Sodium Level 143 mmol/L (136-145); Troponin-I HS 5.8 pg/mL (3.0-78.5)
--- NOTE | 2020-12-07 00:58 | CT_ITS ---
STUDY: CT ABDOMEN AND PELVIS WITH CONTRAST REASON FOR EXAM: Male, 75 years old. Abdominal pain RADIATION DOSAGE (If Supplied By Facility): CTDIvol = ( 17.06 ) mGy, DLP = ( 1158.69 ) mGycm TECHNIQUE: Transaxial images were obtained from the dome of the diaphragm to the symphysis pubis without oral contrast. IV 100mL Isovue-300 was administered. Sagittal and coronal images were reconstructed. Individualized dose optimization techniques were used for this CT. COMPARISON: 09/22/2014 FINDINGS: Minimal bibasilar dependent atelectasis. Unremarkable liver, spleen, pancreas, adrenals, and bilateral kidneys. No definite cholelithiasis. Normal appendix. Bowel loops nonobstructed. Multiple fluid-filled small bowel loops are seen, nonspecific. Distal colonic diverticulosis. No acute diverticulitis. Moderate to large amount of retained stool in the rectum. No free air or free fluid. No adenopathy. Vascular calcification with no abdominal aortic aneurysm. Sections through the pelvis demonstrate a grossly unremarkable urinary bladder. Dystrophic calcification in the prostate. Tiny fat-containing inguinal hernias bilaterally. Multilevel thoracolumbar spondylosis. Osteoarthritis of the bilateral hip joints. CT/Abdomen/Pelvis W IV Cont ONLY IMPRESSION: Multiple fluid-filled small bowel loops, nonspecific finding which can be seen with acute enteritis. No other acute finding. Normal appendix. Chronic findings as above. Electronically Signed: Derik Sheffield MD at 2:15 EDT Tel , Service support ,
[2020-12-07 02:16] VITALS: BP 153/56; PULSE 50; RESP 15; O2SAT 98
[2020-12-07 02:41] LABS: Troponin-I HS 7.9 pg/mL (3.0-78.5)
[2020-12-07 03:02] VITALS: BP 132/70; PULSE 55; RESP 18; O2SAT 97
== END 2020-12-07 03:03 | disposition home or self-care (01) ==
PROVIDERS: Emergency Provider Emergency Medicine; PCP Family Medicine
DX: R10.9 Unspecified abdominal pain (principal); E78.5 Hyperlipidemia, unspecified; I48.0 Paroxysmal atrial fibrillation; I47.1 Supraventricular tachycardia; Z79.82 Long term (current) use of aspirin; Z79.899 Other long term (current) drug therapy
CPT/HCPCS: 36415; 74177; 80053; 83690; 84484; 85025; 93005; 99285; Q9967; A4216

== ENCOUNTER → 2021-03-05 11:32 | Outpatient (CLI) | payer MEDICARE, BC, SELFPAY ==
[2021-03-05 15:16] LABS: Absolute Neutrophil Count 6.2 X10^3/uL (2.0-7.7); Basophil# 0.01 X10^3/uL; Basophil% 0.1 % (0-1); Eosinophil# 0.13 X10^3/uL; Eosinophils% 1.5 % (0-5); Hematocrit 42.3 % (40-54); Hemoglobin 14.2 g/dL (13.0-16.5); Lymphocyte % 19.4 % (19-41); Mean Corp Hgb Conc 33.6 g/dL (32-36); Mean Corpuscular Hgb 31.2 pg (27.0-32.0); Mean Platelet Vol. 11.1 fl (6.2-12.0); Monocyte# 0.65 X10^3/uL; Monocyte% 7.4 % (0-10); NRBC Flagged by Analyzer 0 % (0-5); Neutrophil # 6.23 X10^3/uL (2.7-7.7); Neutrophil % 71.3 % (47-70); Platelet Count 179 K/mm3 (150-450); RBC Distribution Width CV 11.9 % (11.6-14.6); RBC Distribution Width SD 40.5 fl (35.1-43.9); Red Blood Count 4.55 M/mm3 (4.6-6.2); White Blood Count 8.8 K/mm3 (4.4-11.0)
[2021-03-05 15:40] LABS: ALB/GLOB Ratio 0.8 RATIO (0.9-2.4); AST(SGOT) 19 U/L (15-37); Alanine Aminotransfer ALT/SGPT 25 U/L (16-61); Albumin, Serum 3.3 g/dL (3.2-5.0); Alkaline Phosphatase 58 U/L (45-117); Anion Gap 7 (5-15); BUN 12 mg/dL (7-18); BUN/Creat Ratio 11.5 RATIO (10-20); Calcium,Total 8.8 mg/dL (8.5-10.1); Chloride 107 mmol/L (98-107); Creatinine, Serum 1.04 mg/dL (0.70-1.30); EST Glomerular Filtration Rate 74 mL/min (>60); Est Glom Filt Rate - Afr Amer 89 mL/min (>60); Glucose 92 mg/dL (74-106); Potassium 3.8 mmol/L (3.5-5.1); Protein, Total 7.3 g/dL (6.4-8.2); Sodium Level 140 mmol/L (136-145); Thyroid Stim Hormone (TSH) 1.74 uIU/mL (0.358-3.74)
[2021-03-05 15:58] LABS: Erythrocyte Sedimentation Rate 20 mm/hr (0-20)
[2021-03-05 18:33] LABS: Cholesterol 151 mg/dL (200); High Density Lipoprotein 75 mg/dL; Triglycerides 79 mg/dL; Very Low Density Lipoprotein 16 mg/dL (5-40)
== END ==
PROVIDERS: Internal Medicine Cardiovascular Disease; PCP Family Medicine; Referring Provider Family Medicine; Visit Provider Family Medicine
DX: R19.7 Diarrhea, unspecified (principal); R19.4 Change in bowel habit; E78.00 Pure hypercholesterolemia, unspecified
CPT/HCPCS: 36415; 80053; 80061; 84443; 85025; 85652; 86140

== ENCOUNTER → 2021-03-09 12:26 | Outpatient (CLI) | payer MEDICARE, BC, SELFPAY ==
--- NOTE | 2021-03-09 12:27 | MRI_ITS ---
STUDY: MRI LUMBAR SPINE WITHOUT CONTRAST REASON FOR EXAM: Male, 76 years old. pain TECHNIQUE: Standardized fat and water weighted pulse sequences were obtained in the sagittal and axial planes. COMPARISON: None FINDINGS: T12-L1: Normal endplates. Normal disc height, hydration and morphology. Normal bilateral facet joints. Normal central canal and bilateral lateral recesses. Normal bilateral intervertebral neural foramina. Normal lumbar lordosis. Mild levoscoliosis centered at L4. Normal conus medullaris that terminates at the T12/L1. L1-2: Normal endplates. Normal disc height, hydration and morphology. Normal bilateral facet joints. Normal central canal and bilateral lateral recesses. Normal bilateral intervertebral neural foramina. L2-3: Disc desiccation but no disc protrusion, spinal stenosis, or neural foraminal stenosis. L3-4: Disc desiccation but no disc protrusion, spinal stenosis, or neural foraminal stenosis. L4-5: Mild bilateral facet hypertrophy and moderate ligament flavum hypertrophy. Moderate broad disc protrusion produces moderate spinal stenosis with moderate bilateral lateral recess stenosis with abutment of the L5 nerve roots bilaterally and moderate bilateral neural foraminal stenosis with abutment of the L4 nerve roots bilaterally. Associated Modic type I endplate changes L5-S1: Normal endplates. Normal disc height, hydration and morphology. Normal bilateral facet joints. Normal central canal and bilateral lateral recesses. Normal bilateral intervertebral neural foramina. Normal visualized sacral ala. Mild friction related edema posterior subcutaneous fat. MRI/Spine Lumbar (Routine) IMPRESSION: Focal degenerative disc disease at L4/L5 as described above. Electronically Signed: Arya Lambert MD at 13:42 EDT Tel , Service support ,
== END ==
PROVIDERS: PCP Family Medicine; Referring Provider Orthopaedic Surgery; Visit Provider Orthopaedic Surgery
DX: M48.061 Spinal stenosis, lumbar region without neurogenic claudication (principal)
CPT/HCPCS: 72148

== ENCOUNTER → 2021-03-15 16:49 | Outpatient (CLI) | payer MEDICARE, BC, SELFPAY ==
--- NOTE | 2021-03-15 16:51 | CT_ITS ---
EXAM: CT Abdomen and Pelvis With Intravenous Contrast CLINICAL INDICATION: 76 years old, Male; CRP ELEVATED, BLOODY DIARRHEA TECHNIQUE: Helically acquired images were obtained of the abdomen and pelvis with intravenous contrast. This CT exam was performed using one or more of the following dose reduction techniques: automated exposure control, adjustment of the mA and/or kV according to patient size, and/or use of iterative reconstruction technique. This report was created using [employer] report generation technology. CONTRAST: Oral and amp; IV Readi-CAT and amp; 100mL Isovue-300 COMPARISON: Prior CT dated 12/07/2020. FINDINGS: Lower thorax: Unremarkable. Lung bases are clear. No cardiomegaly. No significant pericardial effusion. ABDOMEN: Liver: Unremarkable. Homogeneous. No focal mass. Gallbladder and bile ducts: Unremarkable. No calcified gallstones. No gallbladder distention or wall edema. No intra- or extrahepatic biliary ductal dilation. Pancreas: Unremarkable. No focal cystic or solid mass. Spleen: Unremarkable. Normal size without focal cystic or solid mass. Adrenals: Unremarkable. No nodules. Kidneys and ureters: Unremarkable. Normal renal size and position. No hydronephrosis. Stomach and bowel: Scattered diverticula in the colon. No diverticulitis. No stomach or bowel distention. PELVIS: Appendix: Normal appendix. Bladder: Unremarkable. Reproductive: Unremarkable as visualized. No mass. ABDOMEN and PELVIS: Intraperitoneal space: Unremarkable. No ascites or other fluid collection. No free air. Bones/joints: Unremarkable. No suspicious lytic or blastic abnormality. Soft tissues: Bilateral inguinal hernias containing fat. Vasculature: Atherosclerotic disease. Abdominal aorta is non-dilated. Lymph nodes: Unremarkable. No enlarged lymph nodes. CT/Abdomen/Pelvis WITH Contrast IMPRESSION: Scattered diverticula in the colon. No diverticulitis. Electronically Signed: Dino Palacio MD at 0:18 EDT Tel , Service support ,
== END ==
PROVIDERS: PCP Family Medicine; Visit Provider Family Medicine
DX: R79.82 Elevated C-reactive protein (CRP) (principal)
CPT/HCPCS: 74177; Q9967; A4216

== ENCOUNTER 2021-04-06 05:25 | Day surgery (SDC) | payer MEDICARE, BC, SELFPAY ==
[2021-04-06] VITALS (10 sets, daily range): BP systolic 111–155; BP diastolic 47–74; PULSE 49–55; RESP 16–18; TEMP 35.9–36.4; O2SAT 94–100; BMI 25.4
--- NOTE | 2021-04-06 06:04 | HP.PCM_ITS ---
History and Physical Date of Admission: 04/06/21 Intake Visit Reasons: Discuss Hernia & C-Scope Chief Complaint: Discuss inguinal hernias and c-scope Is patient in pain?: No Allergies No Known Allergies Allergy (Verified 04/01/21 08:00) Medications aspirin 81 mg PO DAILY@0800 12/03/14 [History Confirmed 04/01/21] finasteride 5 mg tablet 5 mg PO QDAY 05/23/17 [History Confirmed 04/01/21] flecainide 100 mg tablet 100 mg PO BID #180 tab 04/02/20 [Rx Confirmed 04/01/21] simvastatin 10 mg tablet 10 mg PO .M/W/F #90 tab 04/02/20 [Rx Confirmed 04/01/21] metoprolol succinate 25 mg tablet,extended release 24 hr See Rx Instructions .ROUTE .COMPLEX #45 tab 07/03/20 [Rx Confirmed 04/01/21] naproxen sodium 220 mg tablet 220 mg PO DAILY PRN tab 03/05/21 [History Confirmed 04/01/21] PFSH Medical History (Updated 04/01/21 @ 08:[address] Edd Corrales MD) Atrial arrhythmia Bulging lumbar disc HLD (hyperlipidemia) Inguinal hernia bilateral, non-recurrent Paroxysmal atrial fibrillation Paroxysmal atrial tachycardia Segmental and somatic dysfunction of lumbar region Segmental and somatic dysfunction of pelvic region Ventricular ectopy Vertigo (03/2013) Surgical History History of left heart catheterization (LHC) (06/15/11) Family History Father CAD (coronary artery disease) Myocardial infarction, Onset Age: 62 Brother AIDS Grandfather Cancer Esophageal cancer Social History Smoking Status: Never smoker alcohol intake: current alcohol intake frequency: a few times a week Alcohol type: beer and hard liquor substance use type: does not use caffeine: No what type of physical activity do you participate in: walking and weight training frequency: 3-4 times per week duration: 45-60 minutes/day seatbelt use: always do you feel safe at home: Yes HPI HPI HPI: SERAFIN RODRIGUEZ, is a 76 M who presents to the office today for surgical consultation regarding a colonoscopy and hernia. The patient is referred by Dr. Thai Theodore and Dr. Umesh Paul and a written copy of my surgical consult recommendations will return to them. He had presented to Dr. Orona on March 05, 2021 with a complaint of bloody stools. He is not on any anticoagulant. He has not had a colonoscopy in [address] scan of the abdomen pelvis with contrast was obtained at the [facility] in March 15, 2021 because a note of an elevated CRP. Scattered diverticulosis was identified without inflammatory changes of diverticulitis. No acute findings that would correlate with the patient's symptoms or laboratory. As of March 05, 2021 the patient had a white count of 8.8 with a hemoglobin 14.2 hematocrit 42.3 platelet count 179,000. At that time 71% neutrophils with 19% lymphocytes. BUN was 12 and creatinine 1.04. Liver function tests at that time were normal. CRP was notably elevated at 60. The patient is on aspirin and Finis steroid and flecainide and metoprolol and naproxen and simvastatin Patient states the diarrhea and rectal bleeding was 1 day. He does not note any abdominal pain. No fever or chills. He has been vaccinated and received a booster for COVID-19. The CT imaging that he had done showed bilateral inguinal hernias with fatty tissue involvement. He has L4-5 compression on the right. He is discussed with Dr. Gaston possible decompression however apparently this requires a 2-day hospital stay in up to a 6-month recovery.. The patient is going to delay as he is planning on spending the winter in [place]. ROS General General: No weight change, appetite, fatigue, colon cancer, breast cancer or weakness HEENT HEENT: No difficulty swallowing, eye injury, eye surgery, swollen glands or hoarseness Endo Endocrine: No thyroid disease, diabetes mellitus, thyroid cancer, Hair loss, heat intolerance or cold intolerance Skin Skin: No rash or changing moles Breast Breast: No left breast lump, right breast lump, nipple discharge, breast pain, abnormal mammogram, abnormal US or breast enlargement Musc Musculoskeletal: Yes back problems and arthritis; No rheumatoid arthritis, gout or joint pain Cardio Cardiovascular: Yes atrial fibrillation; No murmur, pacemaker, heart disease, high blood pressure, heart attack, heart s tent, palpitations, shortness of breat with exertion or chest pain Psych Psychiatric: No depression, anxiety or hearing voices Resp Respiratory: No shortness of breath, No sleep apnea, No cough, No COPD, No asthma, No emphysema and No wheezing Gastro Gastrointestinal: No abdominal pain, No nausea or vomiting, No diarrhea, No constipation, No blood in stool, No acid reflux, No hemorrhoids, No ulcers, No gallbladder problem and No black,tarry stools Esteban Hematologic: No blood thinners, No blood disorders, No bleeding, No anemia and No blood clots Neuro Neurologic: No system reviewed and no additional complaints, except as documented, No as per HPI, No abnormal gait, No abnormal hearing, No abnormal movements, No abnormal speech, No behavioral changes, No burning sensations, No confusion, No convulsions, No disequilibrium, No dizziness, No localized weakness, No frequent falls, No headache(s), No lack of coordination, No loss of vision, No memory loss, No numbness, No other visual disturbances, No radicular pain, No restless legs, No sensory deficit, No syncope, No tingling, No tremor(s), No weakness and No other Exam Const General: cooperative, healthy appearing and comfortable Nutritional Appearance: overweight Orientation: alert and awake [facility] Head: normal to inspection Eyes General: appearance normal, both eyes and all related structures Chest Chest palpation & inspection: normal inspection of the chest Resp Effort & Inspection: normal respiratory effort Auscultation: clear to auscultation bilaterally Cardio Rate: regular rate Rhythm: regular rhythm GI Palpation: soft Other: Mild tenderness to deep palpation left lower quadrant without mass or rebound Other: Slight given the right groin more so than the left. Very slight tenderness right groin. Testicles are descended without mass. Musc Cervical Spine: normal cervical lordosis Skin General: no rashes or lesions noted Neuro General: patient alert and patient awake Extrem General: no calf tenderness Psych Appearance: grossly normal COVID (Procedure Consent) Procedure Criteria Procedure Criteria: Yes Elective The surgeon/proceduralist and patient have discussed in detail the risk of exposure to and/or potential harm posed by the COVID-19 virus with having a surgery/procedure at this time versus the risk of delaying the surgery/procedure. It is not possible to know either the risk of delaying the surgery or procedure or chance of getting an infection with perfect accuracy, but a joint decision was made between the patient and the surgeon/proceduralist to proceed at this time with the scheduled randell cory/procedure as indicated on the consent form. Assessment and Plan Assessment and Plan (1) Rectal bleeding: Status: Acute (2) Bilateral inguinal hernia without obstruction or gangrene: Status: Acute Qualifiers: Recurrence: non-recurrent Qualified Code(s): K40.20 - Bilateral inguinal hernia, without obstruction or gangrene, not specified as recurrent Plan - Dr. Edd Corrales MD: I recommend to the patient a colonoscopy with possible biopsy or polypectomy as indicated. He is aware of the technique, benefit, risk and alternatives. He has had an opportunity to ask no questions answered. He will be leaving for [place] soon. We will perform the endoscopy prior to his departure. The patient has CT evidence of bilateral inguinal hernias with fibrofatty t issue. He has some slight complaints of morning soreness in the right groin. On clinical examination the right groin defect is slightly more prominent than the left. It is unclear as to how much of the right groin discomfort is coming from him favoring the right leg secondary to his L4-5 nerve compression on the right. With all of it in mind he does not require inguinal hernia repair at this time. He is considering upon his return from his winter stay that he would consider letting Dr. Gaston perform the spinal surgery. He would then need to recover from that and then we could consider right inguinal or potentially even bilateral inguinal hernia surgery if indicated. At this time he seems quite stable in that regard. He has had an opportunity to ask and have questions answered. I appreciate the opportunity of assisting with the surgical care. Copy: Dr. Umesh Paul and Dr. Thai Corrales M.D., F.A.C.S. Plan Details Goals & Barriers: Goals Decrease radiculopathy Decrease spasm Decrease pain Improve ROM Barriers L4 disc bulge Facet hypertrophy Coding Level of Care Code 47380 Diagnoses Rectal bleeding K62.5 Bilateral inguinal hernia without obstruction or gangrene K40.20 Recurrence: non-recurrent I have re-examined the patient. There are no clinical changes since date of exam. Edd Corrales M.D., F.A.C.S.
[2021-04-06] MEDS: Lactated Ringers 1,000 ML 100 ML IV (06:07)
--- NOTE | 2021-04-06 06:53 | OP.COLON_ITS ---
Patient Name: Paul Mays Procedure Date: 04/06/2021 6:14 AM Date of : 1945 Age: 76 Procedure: Colonoscopy Indications: Screening for colorectal malignant neoplasm Providers: Edd Corrales MD Medicines: Midazolam 3.5 mg IV, Meperidine 100 mg IV Patient Profile: Last Colonoscopy: 10 years ago. Complications: No immediate complications. Procedure: Pre-Anesthesia Assessment: - Prior to the procedure, a History and Physical was performed, and patient medications and allergies were reviewed. The patient's tolerance of previous anesthesia was also reviewed. The risks and benefits of the procedure and the sedation options and risks were discussed with the patient. All questions were answered, and informed consent was obtained. Prior Anticoagulants: The patient has taken no previous anticoagulant or antiplatelet agents. ASA Grade Assessment: II - A patient with mild systemic disease. After reviewing the risks and benefits, the patient was deemed in satisfactory condition to undergo the procedure. After I obtained informed consent, the scope was passed under direct vision. Throughout the procedure, the patient's blood pressure, pulse, and oxygen saturations were monitored continuously. The Colonoscope was introduced through the anus and advanced to the cecum, identified by appendiceal orifice and ileocecal valve. The colonoscopy was performed without difficulty. The patient tolerated the procedure well. The quality of the bowel preparation was excellent. The ileocecal valve and the appendiceal orifice were photographed. Moderate Sedation: Moderate (conscious) sedation was personally administered by the endoscopist. The following parameters were monitored: oxygen saturation, heart rate, blood pressure, and response to care. Total physician intraservice time was 15 minutes. Scope In: 6:37:14 AM Scope Withdrawal Time 0 hours 6 minutes 55 seconds Scope Out: 6:47:51 AM Total Procedure Duration Time 0 hours 10 minutes 37 seconds Findings: The digital rectal exam findings include non-thrombosed internal hemorrhoids and internal hemorrhoids that prolapse with straining, but spontaneously regress to the resting position (Grade II). Pertinent negatives include normal prostate (size, shape, and consistency). Multiple diverticula were found in the sigmoid colon and descending colon. The exam was otherwise without abnormality. Impression: - Non-thrombosed internal hemorrhoids and internal hemorrhoids that prolapse with straining, but spontaneously regress to the resting position (Grade II) found on digital rectal exam. - Diverticulosis in the sigmoid colon and in the descending colon. - The examination was otherwise normal. - No specimens collected. Recommendation: - Discharge patient to home. - Resume previous diet. - Continue present medications. - Repeat colonoscopy in 10 years for screening purposes. Procedure Code(s): --- Professional --- 06009, Colonoscopy, flexible; diagnostic, including collection of specimen(s) by brushing or washing, when performed (separate procedure) 73846, 59, Moderate sedation services provided by the same physician or other qualified health care management coordinator performing the diagnostic or therapeutic service that the sedation supports, requiring the presence of an independent trained observer to assist in the monitoring of the patient's level of consciousness and physiological status; initial 15 minutes of intraservice time, patient age 5 years or older Diagnosis Code(s): --- Professional --- Z12.11, Encounter for screening for malignant neoplasm of colon K64.1, Second degree hemorrhoids K57.30, Diverticulosis of large intestine without perforation or abscess without bleeding CPT copyright 2017 [employer]. All rights reserved. The codes documented in this report are preliminary and upon plastic manager review may be revised to meet current compliance requirements. Edd Corrales MD 04/06/2021 6:52:52 AM This report has been signed electronically. Number of Addenda: 0 Note Initiated On: 04/06/2021 6:14 AM
--- NOTE | 2021-04-06 06:53 | OP.CCLET_ITS ---
04/06/2021 Otis Theodore Md Re : Colonoscopy procedure for Paul Candelaria Arben This procedure was performed on Tuesday, April 06, 2021. My impressions and recommendations are as follows: Impressions : - Non-thrombosed internal hemorrhoids and internal hemorrhoids that prolapse with straining, but spontaneously regress to the resting position (Grade II) found on digital rectal exam. - Diverticulosis in the sigmoid colon and in the descending colon. - The examination was otherwise normal. - No specimens collected. Recommendations : - Discharge patient to home. - Resume previous diet. - Continue present medications. - Repeat colonoscopy in 10 years for screening purposes. My findings are described in the full procedure note, which is enclosed. If I can be of further assistance, please feel free to contact me at Doctor phone number(s): Work: . Sincerely, Edd Corrales MD 04/06/2021 6:52:52 AM This report has been signed electronically.
== END 2021-04-06 08:04 ==
LOC: EN 05:27 → AC 05:27
PROVIDERS: PCP Family Medicine; Referring Provider Family Medicine; Visit Provider Surgery
PROC: 0DJD8ZZ Inspection of Lower Intestinal Tract, Via Natural or Artificial Opening Endoscopic (ICD-10-PCS; CPT 45378; principal; 2021-04-06 06:25)
DX: Z12.11 Encounter for screening for malignant neoplasm of colon (principal); K64.1 Second degree hemorrhoids; K57.30 Diverticulosis of large intestine without perforation or abscess without bleeding; I48.0 Paroxysmal atrial fibrillation; Z79.82 Long term (current) use of aspirin; Z79.899 Other long term (current) drug therapy
CPT/HCPCS: G0121; 99152; 99153; J7120

== ENCOUNTER 2021-10-19 05:59 | Day surgery (SDC) | payer MEDICARE, BC, SELFPAY ==
--- NOTE | 2021-10-15 06:55 | EKG12_ITS ---
Test Reason : PRE OP Blood Pressure : / mmHG Vent. Rate : 045 BPM Atrial Rate : 045 BPM P-R Int : 196 ms QRS Dur : 094 ms QT Int : 502 ms P-R-T Axes : 061 022 047 degrees QTc Int : 434 ms Sinus bradycardia Otherwise normal ECG Confirmed by СЕРГЕЙ TRIMBLE, SONIYA ([id number]), editor newspaper SUKHI MARTINEZ ([id number]) on 10/18/2021 9:57:57 AM Referred By: Edd Corrales Confirmed By:CAMILA RUSHING MD
[2021-10-15 07:44] LABS: Hematocrit 43.3 % (40-54); Hemoglobin 14.7 g/dL (13.0-16.5); Mean Corp Hgb Conc 33.9 g/dL (32-36); Mean Corpuscular Hgb 31.1 pg (27.0-32.0); Mean Corpuscular Volume 91.5 fL (80-94); Mean Platelet Vol. 10.3 fl (6.2-12.0); Platelet Count 201 K/mm3 (150-450); RBC Distribution Width CV 11.6 % (11.6-14.6); RBC Distribution Width SD 39.4 fl (35.1-43.9); Red Blood Count 4.73 M/mm3 (4.6-6.2); White Blood Count 6.2 K/mm3 (4.4-11.0)
[2021-10-15 08:06] LABS: Anion Gap 4 (5-15); BUN 17 mg/dL (7-18); Calcium,Total 8.6 mg/dL (8.5-10.1); Chloride 109 mmol/L (98-107); EST Glomerular Filtration Rate 77 mL/min (>60); Est Glom Filt Rate - Afr Amer 93 mL/min (>60); Glucose 88 mg/dL (74-106); Potassium 4.2 mmol/L (3.5-5.1); Sodium Level 141 mmol/L (136-145)
[2021-10-15 08:12] LABS: AST(SGOT) 21 U/L (15-37); Alanine Aminotransfer ALT/SGPT 27 U/L (16-61); Albumin, Serum 3.4 g/dL (3.2-5.0); Alkaline Phosphatase 61 U/L (45-117); Bilirubin, Direct 0.14 mg/dL (0.00-0.30); Cholesterol 155 mg/dL (200); Globulin 3.5 g/dL (2.2-4.2); High Density Lipoprotein 68 mg/dL; Protein, Total 6.9 g/dL (6.4-8.2); Triglycerides 81 mg/dL; Very Low Density Lipoprotein 16 mg/dL (5-40)
[2021-10-19] VITALS (8 sets, daily range): BP systolic 138–166; BP diastolic 58–72; PULSE 43–78; RESP 16; TEMP 36.6–36.7; O2SAT 95–98; BMI 26.7
[2021-10-19] MEDS: Lactated Ringers 1,000 ML 15 ML IV ×2 (06:31→08:30)
--- NOTE | 2021-10-19 06:36 | HP.PCM_ITS ---
History and Physical Date of Admission: 10/19/21 Intake Visit Reasons: update h&p bilat ing hernia repair Chief Complaint: Update history and physical bilateral inguinal hernia repair- [facility] Can Conveyor Feeder Required: No Is patient in pain?: No Allergies No Known Allergies Allergy (Verified 10/14/21 09:58) Medications aspirin 81 mg PO DAILY@0800 12/03/14 [History Confirmed 10/14/21] finasteride 5 mg tablet 5 mg PO QDAY 05/23/17 [History Confirmed 10/14/21] simvastatin 10 mg tablet 10 mg PO .M/W/F #90 tab 05/03/21 [Rx Confirmed 10/14/21 ] flecainide 100 mg tablet 100 mg PO BID #180 tab 05/20/21 [Rx Confirmed 10/14/21] metoprolol succinate 25 mg tablet,extended release 24 hr See Rx Instructions .ROUTE .COMPLEX #45 tab 06/15/21 [Rx Confirmed 10/14/21] PFSH Medical History (Updated 10/14/21 @ 09:57 by Fiordaliza Hurd) Atrial arrhythmia Bilateral inguinal hernia without obstruction or gangrene Bulging lumbar disc HLD (hyperlipidemia) Inguinal hernia bilateral, non-recurrent Paroxysmal atrial fibrillation Paroxysmal atrial tachycardia Rectal bleeding Segmental and somatic dysfunction of lumbar region Segmental and somatic dysfunction of pelvic region Ventricular ectopy Vertigo (03/2013) Surgical History History of left heart catheterization (LHC) (06/15/11) Family History Father CAD (coronary artery disease) Myocardial infarction, Onset Age: 62 Brother AIDS Grandfather Cancer Esophageal cancer Social History Smoking Status: Never smoker alcohol intake: current alcohol intake frequency: a few times a week Alcohol type: beer and hard liquor substance use type: does not use caffeine: No what type of physical activity do you participate in: walking and weight training frequency: 3-4 times per week duration: 45-60 minutes/day seatbelt use: always do you feel safe at home: Yes HPI HPI HPI: SERAFIN RODRIGUEZ, is a 76 M who presents to the office today for an update history and physical for an upcoming procedure. Patient notes he was found to have bilateral inguinal hernias on a CT scan which was ordered by his PCP for rectal bleeding and elevated CRP in February 2021. Patient had a colonoscopy 04/06/21. Findings included hemorrhoids, diverticulosis otherwise normal colon examination. Patient notes he went to [place] for the Winter and to visit family. He stated at his last office visit with Dr. Corrales that he does not want to proceed with the hernia surgery until he returns to [place]. Patient notes he has been having discomfort of the right groin region especially in the morning. He notes since mid August, he has no longer been having low back pain. He states he has been walking more which has help to keep his back more limber. He notes Dr. Gaston had offered surgery to correct the He notes the right groin discomfort continues to be bothersome. He has no discomfort of the left groin. He follows with Dr. Nathan for atrial fibrillation. He denies previous myocardial infarction, stroke or blood clots. He denies any complications or side effects from anesthesia. He denies any urinary issues. ROS General General: No weight change, appetite, fatigue, colon cancer, breast cancer or weakness HEENT HEENT: No difficulty swallowing, eye injury, eye surgery, swollen glands or hoarseness Endo Endocrine: No thyroid disease, diabetes mellitus, thyroid cancer, Hair loss, heat intolerance or cold intolerance Skin Skin: No rash or changing moles Breast Breast: No left breast lump, right breast lump, nipple discharge, breast pain, abnormal mammogram, abnormal US or breast enlargement Musc Musculoskeletal: Yes back problems and arthritis; No rheumatoid arthritis, gout or joint pain Cardio Cardiovascular: Yes atrial fibrillation; No murmur, pacemaker, heart disease, high blood pressure, heart attack, heart stent, palpitations, shortness of breat with exertion or chest pain Psych Psychiatric: No depression, anxiety or hearing voices Resp Respiratory: No shortness of breath, No sleep apnea, No cough, No COPD, No asthma, No emphysema and No wheezing Gastro Gastrointestinal: No abdominal pain, No nausea or vomiting, No diarrhea, No constipation, No blood in stool, No acid reflux, No hemorrhoids, No ulcers, No gallbladder problem and No black,tarry stools Esteban Hematologic: No blood thinners, No blood disorders, No bleeding, No anemia and No blood clots Neuro Neurologic: No system reviewed and no additional complaints, except as documented, No as per HPI, No abnormal gait, No abnormal hearing, No abnormal movements, No abnormal speech, No behavioral changes, No burning sensations, No confusion, No convulsions, No disequilibrium, No dizziness, No localized weakness, No frequent falls, No headache(s), No lack of coordination, No loss of vision, No memory loss, No numbness, No other visual disturbances, No radicular pain, No restless legs, No sensory deficit, No syncope, No tingling, No tremor(s), No weakness and No other Exam Const General: cooperative, healthy appearing, comfortable and no acute distress [facility] Head: normal to inspection Eyes General: appearance normal, both eyes and all related structures Neck Neck: normal visual inspection Neck mass: No Resp Effort & Inspection: normal respiratory effort Auscultation: clear to auscultation bilaterally Cardio Rate: regular rate Rhythm: regular rhythm GI Inspection: normal to inspection Palpation: soft and hernia (bilateral inguinal hernia; right greater than left) Auscultation: normal bowel sounds Skin General: no rashes or lesions noted Neuro General: no focal motor deficits and CN's II-XI intact bilaterally Extrem General: normal to inspection Psych Appearance: grossly normal Affect: normal affect Assessment and Plan Assessment and Plan (1) Bilateral inguinal hernia without obstruction or gangrene: Status: Acute Qualifiers: Recurrence: non-recurrent Qualified Code(s): K40.20 - Bilateral inguinal hernia, without obstruction or gangrene, not specified as recurrent Plan - Lillian MEREDITH PAEnrriqueC: Dr. Corrales will plan to perform a laparoscopic bilateral inguinal hernia with mesh placement. Procedure details, risks and benefits have been reviewed. Patient has had the opportunity to ask and have questions answered. Patient verbally understands and agrees with the plan. Plan Details Goals & Barriers: Goals Decrease radiculopathy Decrease spasm Decrease pain Improve ROM Barriers L4 disc bulge Facet hypertrophy Coding Level of Care Code No Charge Diagnoses Bilateral inguinal hernia without obstruction or gangrene K40.20 Recurrence: non-recurrent Comment Update H&P 10/14/21 9217<Electronically signed by Lillian MEREDITH PAEnrriqueC> I have re-examined the patient. There are no clinical changes since date of exam.
--- NOTE | 2021-10-19 06:37 | EX.PCM.DISCH ---
Discharge Instructions Procedure General Surgery Diet Discharge Diet: Light diet - advance as tolerated (if you have questions about your diet instructions, please talk to you doctor.) Activity Discharge Activity: May Not Drive (for 3-5 days or while taking narcotic pain medicine.) May shower in (days): 1 Lifting Restrictions: 10 pounds Dressing / Incision Call your doctor if your incision/area has: Continuous Slow Oozing, Sudden Increased Bleeding, Increased Pain/ Swelling, Increased Redness and Foul Smelling Discharge Call your doctor if you observe: Fever of 101 or Higher Suture Line Care: Avoid Pulling/Pushing and Avoid Pinching/Bending Additional Dressing/Incision Instructions:: Change or remove dressing in 4 days. Leave steri-strips in place for 1 week. Follow Up Care Please Follow Up With: Edd Corrales MD When: Call [phone] to make an appointment to be seen in about 10 days. Test Results: Test results from this visit will be discussed in further detail at your follow-up appointment, if applicable. Discharge Plan Admission Attending Provider: Edd Corrales Primary Care Provider: Otis Theodore Discharge Orders/Prescriptions Prescriptions: No Action finasteride [Proscar] 5 mg tablet 5 mg PO QDAY RF: 0 aspirin 81 MG tablet 81 mg PO DAILY@0800 RF: 0 simvastatin 10 mg tablet 10 mg PO .M// Qty: 90 RF: 3 flecainide 100 mg tablet 100 mg PO BID Qty: 180 RF: 3 metoprolol succinate 25 mg tablet extended release 24 hr See Rx Instructions .ROUTE .COMPLEX Qty: 45 RF: 3 Other Ambulatory Orders: 12 Lead EKG (Routine) Location: None Selected Ordered By: Dr. Kvng Salinas
[2021-10-19] MEDS: Cefazolin 2 GM in 0.9% Normal Saline 100 ML IV (07:19)
--- NOTE | 2021-10-19 08:49 | OP.PCM_ITS ---
Problems Associated Problem List Diagnoses (1) Bilateral inguinal hernia without obstruction or gangrene: Report of Operation Date of Procedure: 10/19/21 Pre-Operative Diagnosis: Bilateral inguinal hernias Post-Operative Diagnosis: Bilateral direct and indirect inguinal hernias Surgery/Procedure Performed:: Laparoscopic bilateral inguinal herniorrhaphy Bard 3D max large mesh right lot number [id number], reference #[id number], expiry date 10/23/2025 Bard 3D max large mesh left lot number [id number], reference [id number], expiry date 08/23/2025 Secure strap Lot number [id number] expiry date May 2023 Description of Surgical Findings:: Timeout informed consent was obtained. 76-year-old gentleman was taken to the operating placed on the table underwent general endotracheal intubation anesthesia. Ancef 2 g were given intravenously. The abdomen sterilely prepped and draped. 0.5% Marcaine was used as a local anesthetic. Skin sites were pretty anesthetized. Throughout the procedure t otal 30 cc was used. A infraumbilical vertical incision was created holding sutures of 0 Vicryl placed varies needle inserted saline drop test performed the abdomen was insufflated with CO2 to a pressure of 10 mmHg pressure. 10 mm trocar inserted. 10 mm laparoscope inserted. Under direct visualization 5 mm trochars were placed on the right left lower quadrant ilioinguinal nerve blocks were performed bilaterally with the Marcaine the peritoneum superior and lateral to the internal ring on the left was incised carried immediately the peritoneum was completely dissected free direct indirect and femoral areas nicely identified. Similar exposure technique was performed on the right. It is of note that the bladder was noted to be distended with urine. Dissection was performed cleanly. Bard 3D max large mesh was placed on the right and the left. It was secured medially superiorly and laterally with secure strap. Slight overlap was performed at the midline suprapubic area. Excellent positioning and covers was felt to have been achieved. The peritoneum was approximated to itself using secure strap as well as Hem-o-liberty clips. Complete obliteration to the mesh was achieved. The abdomen was allowed to deflate through an antiviral valve. The fascia at the umbilicus was repaired with interrupted 0 Vicryl [id number] suture. Skin edges approximated opted for Monocryl subdermal stitches. Steri-Strips Telfa OpSite dressings applied. Sponge and instrument and needle counts were reported to the surgeon to be correct. Specimens none. Drains none. Blood loss minimal. Edd Corrales M.D., F.A.C.S. Surgeon: Edd Corrales Type of Anesthesia: General and Local Anesthesiologist: Jo-Ann Richmond
[2021-10-19] MEDS: HYDROcodone Bitartrate/Apap 5/325 Tablet PO (10:21)
== END 2021-10-19 13:03 | disposition home or self-care (01) ==
LOC: SDC 05:59 → AC 06:00
PROVIDERS: Anesthesiology; Internal Medicine Cardiovascular Disease; PCP Family Medicine; Referring Provider Surgery; Visit Provider Surgery
PROC: (CPT 49650; principal; 2021-10-19 07:10)
DX: K40.20 Bilateral inguinal hernia, without obstruction or gangrene, not specified as recurrent (principal); I48.0 Paroxysmal atrial fibrillation; K57.30 Diverticulosis of large intestine without perforation or abscess without bleeding; E78.5 Hyperlipidemia, unspecified; Z79.82 Long term (current) use of aspirin; Z79.899 Other long term (current) drug therapy; M51.26 Other intervertebral disc displacement, lumbar region; M19.90 Unspecified osteoarthritis, unspecified site; M48.061 Spinal stenosis, lumbar region without neurogenic claudication
CPT/HCPCS: 49650; 00830; 36415; 80048; 80061; 80076; 85027; 93005; J7120; C1781; J2405

== ENCOUNTER → 2022-10-07 | Outpatient (CLI) | payer MEDICARE, BC, SELFPAY ==
[2022-10-07 15:28] LABS: Absolute Lymphocyte Count 1.61 X10^3/uL (0.83-4.51); Basophil# 0.03 X10^3/uL; Basophil% 0.6 % (0-1); Eosinophil# 0.18 X10^3/uL; Eosinophils% 3.4 % (0-5); Hematocrit 42.9 % (40-54); Hemoglobin 14.2 g/dL (13.0-16.5); Lymphocyte # 1.61 X10^3/ul (0.83-4.51); Lymphocyte % 30.4 % (19-41); Mean Corp Hgb Conc 33.1 g/dL (32-36); Mean Corpuscular Hgb 31.1 pg (27.0-32.0); Mean Corpuscular Volume 93.9 fL (80-94); Mean Platelet Vol. 10.9 fl (6.2-12.0); Monocyte% 9.4 % (0-10); NRBC Flagged by Analyzer 0 % (0-5); Neutrophil # 2.97 X10^3/uL (2.7-7.7); Platelet Count 180 K/mm3 (150-450); RBC Distribution Width CV 11.8 % (11.6-14.6); RBC Distribution Width SD 41.1 fl (35.1-43.9); Red Blood Count 4.57 M/mm3 (4.6-6.2); White Blood Count 5.3 K/mm3 (4.4-11.0)
[2022-10-07 15:40] LABS: ALB/GLOB Ratio 0.9 RATIO (0.9-2.4); AST(SGOT) 28 U/L (15-37); Alanine Aminotransfer ALT/SGPT 34 U/L (16-61); Albumin, Serum 3.6 g/dL (3.2-5.0); Alkaline Phosphatase 60 U/L (45-117); Anion Gap 5 (5-15); BUN 15 mg/dL (7-18); BUN/Creat Ratio 13.8 RATIO (10-20); CRP 3.67 mg/L (0.0-3.0); Calcium,Total 9.1 mg/dL (8.5-10.1); Chloride 110 mmol/L (98-107); Creatinine, Serum 1.09 mg/dL (0.70-1.30); EST Glomerular Filtration Rate 70 mL/min (>60); Est Glom Filt Rate - Afr Amer 84 mL/min (>60); Globulin 4.1 g/dL (2.2-4.2); Glucose 78 mg/dL (74-106); Lipase 35 U/L (13-75); Potassium 4.3 mmol/L (3.5-5.1); Protein, Total 7.7 g/dL (6.4-8.2); Sodium Level 141 mmol/L (136-145)
== END | disposition home or self-care (01) ==
LOC: MFPLAB 11:56
PROVIDERS: PCP Family Medicine; Visit Provider Family Medicine
DX: R10.32 Left lower quadrant pain (principal)
CPT/HCPCS: 36415; 80053; 83690; 85025; 86140

== ENCOUNTER → 2023-02-14 | Outpatient (CLI) | payer MEDICARE, BC, SELFPAY ==
[2023-02-14 16:00] LABS: PSA,Total - Annual Screen 0.08 ng/mL (0.00-4.00)
== END | disposition home or self-care (01) ==
LOC: LAB 15:04
PROVIDERS: PCP Family Medicine; Referring Provider Nurse Practitioner; Visit Provider Nurse Practitioner
DX: Z12.5 Encounter for screening for malignant neoplasm of prostate (principal)
CPT/HCPCS: 36415; 84153; G0103

== ENCOUNTER → 2024-04-08 | Outpatient (CLI) | payer MEDICARE, BC, SELFPAY ==
[2024-04-08 07:23] LABS: Absolute Lymphocyte Count 2.11 X10^3/uL (0.83-4.51); Absolute Neutrophil Count 3.1 X10^3/uL (2.0-7.7); Basophil# 0.03 X10^3/uL; Basophil% 0.5 % (0-1); Eosinophil# 0.21 X10^3/uL; Eosinophils% 3.6 % (0-5); Hematocrit 42.8 % (40-54); Hemoglobin 14.3 g/dL (13.0-16.5); Lymphocyte # 2.11 X10^3/ul (0.83-4.51); Lymphocyte % 35.9 % (19-41); Mean Corp Hgb Conc 33.4 g/dL (32-36); Mean Corpuscular Hgb 30.4 pg (27.0-32.0); Mean Corpuscular Volume 91.1 fL (80-94); Monocyte# 0.42 X10^3/uL; Monocyte% 7.2 % (0-10); NRBC Flagged by Analyzer 0 % (0-5); Neutrophil # 3.08 X10^3/uL (2.7-7.7); Neutrophil % 52.5 % (47-70); Platelet Count 184 K/mm3 (150-450); RBC Distribution Width CV 11.8 % (11.6-14.6); RBC Distribution Width SD 39.1 fl (35.1-43.9); White Blood Count 5.9 K/mm3 (4.4-11.0)
[2024-04-08 08:07] LABS: ALB/GLOB Ratio 0.9 RATIO (0.9-2.4); AST(SGOT) 23 U/L (15-37); Alanine Aminotransfer ALT/SGPT 22 U/L (16-61); Albumin, Serum 3.3 g/dL (3.2-5.0); Alkaline Phosphatase 64 U/L (45-117); Anion Gap 5 (5-15); BUN 15 mg/dL (7-18); BUN/Creat Ratio 15.1 RATIO (10-20); Calcium,Total 8.6 mg/dL (8.5-10.1); Chloride 110 mmol/L (98-107); Cholesterol 164 mg/dL (200); EST Glomerular Filtration Rate 77 mL/min (>60); Est Glom Filt Rate - Afr Amer 93 mL/min (>60); Globulin 3.5 g/dL (2.2-4.2); Glucose 98 mg/dL (74-106); High Density Lipoprotein 71 mg/dL; Potassium 3.9 mmol/L (3.5-5.1); Protein, Total 6.8 g/dL (6.4-8.2); Sodium Level 140 mmol/L (136-145); Triglycerides 84 mg/dL; Very Low Density Lipoprotein 17 mg/dL (5-40)
[2024-04-09 17:07] LABS: Lipoprotein A <8.4 nmol/L (<75.0)
== END | disposition home or self-care (01) ==
PROVIDERS: PCP Nurse Practitioner Family; Referring Provider Nurse Practitioner Family; Visit Provider Nurse Practitioner Family
DX: E78.5 Hyperlipidemia, unspecified (principal); I10 Essential (primary) hypertension; Z83.430 Family history of elevated lipoprotein(a)
CPT/HCPCS: 36415; 80053; 80061; 83695; 85025

== ENCOUNTER → 2024-10-01 | Outpatient (CLI) | payer MEDICARE, BC, SELFPAY ==
[2024-10-01 18:03] LABS: Anion Gap 9 (5-15); BUN 15 mg/dL (4-19); Calcium,Total 8.8 mg/dL (7.6-11.0); Carbon Dioxide 24.1 mmol/L (21.0-32.0); Chloride 107 mmol/L (98-108); Creatinine, Serum 0.91 mg/dL (0.70-1.20); EST Glomerular Filtration Rate 86 (>60); Glucose 89 mg/dL (70-99); Potassium 4.1 mmol/L (3.3-5.1); Sodium Level 140 mmol/L (133-145)
== END | disposition home or self-care (01) ==
LOC: LAB 16:44
PROVIDERS: PCP Family Medicine; Referring Provider Internal Medicine Cardiovascular Disease; Visit Provider Internal Medicine Cardiovascular Disease
DX: I48.0 Paroxysmal atrial fibrillation (principal); E78.00 Pure hypercholesterolemia, unspecified
CPT/HCPCS: 80048; 84443

== ENCOUNTER → 2024-10-02 | Outpatient (CLI) | payer MEDICARE, BC, SELFPAY | END | disposition home or self-care (01) | LOC: PSN 15:09 | PROVIDERS: PCP Family Medicine; Referring Provider Internal Medicine Cardiovascular Disease; Visit Provider Internal Medicine Cardiovascular Disease | DX: I49.9 Cardiac arrhythmia, unspecified (principal) | CPT/HCPCS: 93225; 93226 ==

== ENCOUNTER → 2024-10-07 | Outpatient (CLI) | payer MEDICARE, BC, SELFPAY ==
--- NOTE | 2024-10-07 16:05 | STRESSREP ---
Stress Test Report Exercise stress test. 79-year-old male with a history of atrial fibrillation. Assessing for chronotropic competence. Stress protocol: Resting EKG demonstrates normal sinus rhythm with a rate of 61 bpm resting blood pressure is 148/82 mmHg. The patient exercised according to the regular Trevor protocol for a total duration of 8 minutes attaining a maximum heart rate of 133 bpm which was 94% of maximum predicted heart rate; the maximum workload was 10.1 metabolic equivalents. At rest there were no ST or T wave changes noted to suggest ischemia and at peak exercise upsloping ST changes only were noted which did not meet the criteria for ischemia. No clinical angina was noted the test was terminated due to the target heart rate being achieved/fatigue. The peak blood pressure was 188/60 mmHg. Rate-pressure product was 19,500. Conclusion: Normal exercise stress test with no EKG criteria for ischemia. No atrial fibrillation noted. Good functional capacity. Excellent chronotropic competence.
== END | disposition home or self-care (01) ==
LOC: CVS 11:00
PROVIDERS: PCP Family Medicine; Referring Provider Internal Medicine Cardiovascular Disease; Visit Provider Internal Medicine Cardiovascular Disease
DX: I48.0 Paroxysmal atrial fibrillation (principal); R94.31 Abnormal electrocardiogram [ECG] [EKG]; E78.00 Pure hypercholesterolemia, unspecified
CPT/HCPCS: 93017

== ENCOUNTER → 2025-03-31 | Outpatient (CLI) | payer MEDICARE, BC, SELFPAY ==
[2025-03-31 11:07] LABS: PSA,Total - Annual Screen 0.08 ng/mL (0.02-4.00)
== END | disposition home or self-care (01) ==
LOC: LAB 10:00
PROVIDERS: PCP Family Medicine; Referring Provider Urology; Visit Provider Urology
DX: Z12.5 Encounter for screening for malignant neoplasm of prostate (principal)
CPT/HCPCS: 36415; 84153; G0103

== ENCOUNTER → 2025-04-09 | Outpatient (CLI) | payer MEDICARE, BC, SELFPAY ==
[2025-04-09 08:10] LABS: Hematocrit 39.4 % (40-54); Hemoglobin 13.7 g/dL (13.0-16.5); Immature Granulocytes Count 0.010 X10^3/uL (0.0-0.0); Mean Corp Hgb Conc 34.8 g/dL (32-36); Mean Corpuscular Volume 90.4 fL (80-94); Mean Platelet Vol. 9.9 fl (6.2-12.0); NRBC Flagged by Analyzer 0 % (0-5); Platelet Count 179 K/mm3 (150-450); RBC Distribution Width CV 11.7 % (11.6-14.6); RBC Distribution Width SD 38.5 fl (35.1-43.9); Red Blood Count 4.36 M/mm3 (4.6-6.2); White Blood Count 6.1 K/mm3 (4.4-11.0)
[2025-04-09 08:47] LABS: AST(SGOT) 25 U/L (<=37); Alanine Aminotransfer ALT/SGPT 16 U/L (<=46); Albumin, Serum 3.9 g/dL (3.4-4.8); Alkaline Phosphatase 66 U/L (40-129); Anion Gap 10 (5-15); BUN 15 mg/dL (4-19); BUN/Creat Ratio 15.4 RATIO (10-20); Calcium,Total 9.0 mg/dL (7.6-11.0); Carbon Dioxide 24.4 mmol/L (21.0-32.0); Chloride 106 mmol/L (98-108); Cholesterol 153 mg/dL (<=200); Globulin 2.6 g/dL (2.2-4.2); Glucose 94 mg/dL (70-99); Low Density Lipoprotein Calc. 75 mg/dL; Potassium 4.3 mmol/L (3.3-5.1); Triglycerides 64 mg/dL; Very Low Density Lipoprotein 13 mg/dL (5-40); cholesterol:hdl ratio screen 2.34
== END | disposition home or self-care (01) ==
LOC: LAB 07:44
PROVIDERS: PCP Family Medicine; Referring Provider Family Medicine; Visit Provider Family Medicine
DX: E78.5 Hyperlipidemia, unspecified (principal); I48.91 Unspecified atrial fibrillation; I10 Essential (primary) hypertension
CPT/HCPCS: 36415; 80053; 80061; 85025